=== PATIENT | female | born 1950 | race Caucasian/White ===

== ENCOUNTER → 2020-01-17 | Outpatient (CLI) | payer MEDICARE, SELFPAY ==
--- NOTE | 2020-01-17 11:25 | VUL_PTH ---
PATIENT: STEPHANIE KATZ LOC: [facility] U#:[id number] AGE/SX: 69/F ROOM: RE01/17/[address]: Dr. Tyron García MD : 1950 BED: DIS: 01/17/2020 SPEC #: [id number] RECD: 01/18/20 10:47 STATUS: CORY CHOU #: [id number] RHETT: 01/17/20 11:[address]: Tyron García DEPT: SURGICAL PATHOLOGY RECD BY: Chika Moreno ENTERED: 01/18/20 11:05 SP TYPE: VULVA BX OTHR DR: Dr. Tyron Hurst MD Tissues: Vulva, NOS Procedures: PAS Fungus (control) Special Stain Group I Surgery Specimen Level IV HEADER OPERATION: Vulvar biopsy PRE-OP DIAGNOSIS: N90.89 TISSUE SUBMITTED: Vulvar biopsy MICROSCOPIC DIAGNOSIS Vulvar biopsy: Fragments of squamous mucosa with marked chronic inflammation. Special stain for fungi is negative for organisms; matched control is appropriate. GABY:chetan 01/19/20 MICROSCOPIC DESCRIPTION Slides are reviewed. GROSS DESCRIPTION Received in fixative is one container labeled with the patient's name and designated vulvar biopsy. The specimen consists of two irregular fragments of lisa soft tissue that in aggregate measure 0.5 x 0.2 x 0.1 cm. The specimen is totally submitted in one cassette. / GABY:chetan 01/18/20 TC:3 CPT: 84444, 46600
== END | disposition home or self-care (01) ==
LOC: LABSPEC 01-18 11:17
PROVIDERS: PCP Family Medicine; Referring Provider Obstetrics & Gynecology; Visit Provider Obstetrics & Gynecology
DX: N90.89 Other specified noninflammatory disorders of vulva and perineum (principal)
CPT/HCPCS: 88305; 88312

== ENCOUNTER → 2024-09-08 | Outpatient (CLI) | payer MEDICARE, SELFPAY ==
--- NOTE | 2024-09-08 11:43 | US_ITS ---
STUDY: ULTRASOUND BREAST - LEFT REASON FOR EXAM: Female, 74 years old. History of right breast mass. TECHNIQUE: Axial and longitudinal images of the LEFT breast were performed with a high resolution ultrasound transducer. # OF IMAGES: 10 COMPARISON: None. FINDINGS: LEFT Breast: The upper lateral aspect of the right breast was examined with ultrasound. There is dense fibroglandular tissue. No sonographic abnormality is seen for biopsy. US/Breast Limited Unilateral IMPRESSION: No sonographic abnormality is seen. ASSESSMENT CATEGORY: BIRADS Category 1: Negative. A letter regarding these results will be sent to the patient by the facility within 30 days. Electronically Signed: Migel Jackson MD at 13:21 EDT ,
== END | disposition home or self-care (01) ==
PROVIDERS: PCP Family Medicine; Referring Provider Surgery; Visit Provider Surgery
DX: N63.10 Unspecified lump in the right breast, unspecified quadrant (principal); R92.8 Other abnormal and inconclusive findings on diagnostic imaging of breast
CPT/HCPCS: 76642

== ENCOUNTER → 2025-03-13 | Outpatient (CLI) | payer MEDICARE, SELFPAY ==
--- NOTE | 2025-03-13 10:51 | US_ITS ---
PROCEDURE: BREAST LIMITED UNILATERAL 03/13/2025 REASON FOR EXAM: 2 RIGHT BREAST MASSES. Masses were previously seen on a prior outside ultrasound examination. They were then not seen with clarity on a 09/08/2024 ultrasound. Document whether masses are present TECHNIQUE: Targeted left breast ultrasound at the 9 o'clock and 12 o'clock positions COMPARISON: Breast ultrasound exam dated 09/08/2024 and a mammogram report dated 08/04/2024 and a breast ultrasound report dated 08/04/2024. FINDINGS: Left breast ultrasound was targeted to the 9 o'clock and 12 o'clock regions. Ultrasonography was performed and demonstrates no ultrasound abnormality right breast at the 9 o'clock position. No suspicious solid or cystic masses seen at location. There is a solid, heterogeneous, hypoechoic and isoechoic, smoothly marginated mass in the right breast at the 12 o'clock, 6 cm from the nipple measuring 7 x 6 x 3 mm. Masses slightly larger whether to the prior breast ultrasound exam dated 08/04/2024. At that time this mass measured 5 x 4 x 4 mm. This mass is wider than it is tall and does not produce any posterior shadowing. The mass has primarily benign features and appears to represent a probable fibrocystic mass. US/Breast Limited Unilateral IMPRESSION: Impression: The solid mass in the right breast at the 12 o'clock position has s lightly increased in size. 1 more short-term follow-up ultrasound is recommended to document stability. The patient should return in July 2025 for routine yearly screening mammography. At that same time, a short-term follow-up ultrasound sh ould be performed to document whether the mass in the right breast at the 12 o'clock position stabilizes and size. Birads: BI-RADS 3: PROBABLY BENIGN. Reading Location: [id number]
== END | disposition home or self-care (01) ==
PROVIDERS: PCP Family Medicine; Referring Provider Surgery; Visit Provider Surgery
DX: R92.8 Other abnormal and inconclusive findings on diagnostic imaging of breast (principal)
CPT/HCPCS: 76642

== ENCOUNTER → 2025-04-07 | Outpatient (CLI) | payer MEDICARE, SELFPAY ==
--- NOTE | 2025-04-07 | BRBX_PTH ---
PATIENT: STEPHANIE KATZ LOC: [facility] U#:[id number] AGE/SX: 74/F ROOM: RE04/07/[address]: Dr. Felicia Parada MD : 1950 BED: DIS: 04/07/2025 SPEC #: [id number] RECD: 04/07/25 13:15 STATUS: CORY REColin #: [id number] RHETT: 04/07/25 00:[address]: Felicia Parada DEPT: SURGICAL PATHOLOGY RECD BY: Ricardo Kimbrough ENTERED: 04/07/25 13:26 SP TYPE: BREAST BX MADELAINE DR: Zarina Rodriguez PA-C Tissues: A - Right breast, NOS Procedures: Surgery Specimen Level IV HEADER OPERATION: Ultrasound guided breast biopsy - right PRE-OP DIAGNOSIS: Right breast TISSUE SUBMITTED: A- Right breast, 12o'clock, 6cm from nipple Ischemic Time: <1 minute Fixation Time: 6 hours MICROSCOPIC DIAGNOSIS A. Right breast, 12:00, 6 CMFN, core biopsy: * Benign breast tissue with focal microcalcification. MICROSCOPIC DESCRIPTION Slides are reviewed. GROSS DESCRIPTION A. Received in formalin in a container labeled with the patient's name, date of , and RT breast 12+6 are multiple lisa-yellow fragments of fibrofatty tissue measuring 2.0 x 0.7 x 0.2 cm in aggregate. Submitted in toto in A1. Total formalin fixation time: Between 6 and 72 hours. [facility] 04-07-2025 CPT:51429
--- NOTE | 2025-04-07 12:25 | US_ITS ---
PROCEDURE: US BREAST BIOPSY 1ST LESION 04/07/2025 REASON FOR EXAM: F, Age 74 y/o , RIGHT BREAST MASS COMPARISON: Prior exam(s) dating back to March 10, 2025.. TECHNIQUE: Under direct sonographic guidance, the surgeon performed core biopsies of the 7 mm x 7 mm x 4 mm hypoechoic nodule at the 12 o'clock position of the breast at 6 cm from the nipple. FINDINGS: Successful ultrasound-guided breast biopsy as described. US/US Breast Biopsy 1st Lesion IMPRESSION: Successful ultrasound-guided breast biopsy of the hypoechoic nodule at the 12 o 'clock position of the breast at 6 cm from the nipple measuring 7 mm x 7 mm x 4 mm. BI-RADS 0: INCOMPLETE - NEED ADDITIONAL IMAGING EVALUATION. Reading Location: [place] [address]
== END | disposition home or self-care (01) ==
LOC: BIRAD 12:24
PROVIDERS: PCP Family Medicine; Referring Provider Surgery; Visit Provider Surgery
DX: R92.8 Other abnormal and inconclusive findings on diagnostic imaging of breast (principal)
CPT/HCPCS: 19084; 19083; 88305

== ENCOUNTER 2025-10-17 13:14 | Day surgery (SDC) | payer MEDICARE, SELFPAY ==
[2025-10-17] VITALS (10 sets, daily range): BP systolic 125–160; BP diastolic 66–91; PULSE 65–89; RESP 16–18; TEMP 35.9–36.8; O2SAT 94–97; BMI 21.4
--- NOTE | 2025-10-17 13:42 | HP.PCM_ITS ---
HPI - General General Date of Admission: 10/17/25 Date of Service: 10/17/25 Chief Complaint: Choledocholithiasis HPI Narrative MAYRA KATZ, is a 75 F who presents [ Chief Complaint: Abdominal pain Referred from primary care provider due to abnormal MRI. Patient endorses a history of diverticulitis and reports about 3 episodes. In May 2025 she started having symptoms of diverticulitis and was started on an antibiotic however symptoms did not resolve and CT abdomen pelvis was ordered. Diverticulitis was confirmed and she was started on another round of antibiotics. CT also showed a dilated pancreatic duct and MRI was subsequently ordered. Findings below. Patient endorses intermittent right upper quadrant pain after eating certain foods. She has also had a unintentional weight loss over the past few months. Patient discovered she was prediabetic back in the beginning of 2024 and started to eat healthier. She started to lose too much weight and added back in some carbs but continued to lose weight. She weighed as low as 117. Patient also notes a long history of constipation. She feels like she does not fully evacuate. She does not take daily medications for constipation. Last colonoscopy was 3 years ago with polyps and diverticula MRI abdomen with and without contrast 08/04/2025: Filling defect in the inferior common bile duct. Suspected stones in the gallbladder neck though seen only in 1 sequence. Localized cystic dilation of left lobe intrahepatic duct. Pancreatic ductal dilation without appreciable obstructive lesion. [facility] Medical History Wears glasses Post-menopausal TIA (transient ischemic attack) Former smoker History of Holter monitoring History of stress test Osteopenia High cholesterol Cystic lump of breast Bone fracture GERD (gastroesophageal reflux disease) Prediabetes Osteoporosis RUQ pain Abnormal mammogram HTN (hypertension) Home Medications ?Medication ?Instructions ?Recorded ?Last Taken ?Type alendronate 70 mg tablet 70 mg PO QWEEK 08/17/25 Unkn own History rosuvastatin 5 mg tablet (Crestor) 5 mg PO .QOD Unknown History amlodipine 5 mg tablet 5 mg PO DAILY 10/13/25 Unkno wn History Allergy/AdvReac Type Severity Reaction Status Date / Time No Known Allergies Allergy Verified 10/13/25 09:09 Family History Sister Breast cancer Mother Hypertension Surgical History H/O tubal ligation Social History Smoking Status: Former smoker alcohol intake: current alcohol intake frequency: holidays/special occasions only substance use type: does not use what type of physical activity do you participate in: none ROS Constitutional Constitutional: Denies fatigue, fever(s), poor appetite, weight gain or weight loss Gastrointestinal Gastrointestinal: Denies belching, bloating, change in bowel habits, change in stool character, chewing difficulty, coffee ground emesis, constipation, cramping, diarrhea, dyspepsia, dysphagia, early satiety, excessive flatus, fecal incontinence, heartburn, hematemesis, hematochezia, hemorrhoids, loose stools, melena, nausea, odynophagia, rectal bleeding, tenesmus, vomiting or weight changes Physical Exam Const alert, oriented x3, no apparent distress and healthy appearing General Appearance: cooperative GI normal to inspection, nondistended, normoactive bowel sounds, soft to palpation, non-tender and non-distended Percussion: normal to percussion Rectal Exam: deferred Assessment & Plan Assessment/Plan (1) Cystic dilation of intrahepatic duct: (2) Pancreatic duct dilated: (3) RUQ pain: PLAN: Assessment and Plan Assessment and Plan (1) RUQ pain: Status: Acute Plan: Mayra is a 75-year-old female patient with past medical history of hypertension, prediabetes, diverticulitis, and osteopenia here today for evaluation. Patient endorses symptoms of diverticulitis starting in May 2025 which was treated with a course of antibiotics. Symptoms continued and CT abdomen pelvis was ordered which confirmed diverticulitis. She was again treated with another course of antibiotics. CT abdomen pelvis also revealing a dilated pancreatic duct. MRI was ordered and menstruated filing defect in the inferior common bile duct. Suspected stone in the gallbladder neck that was seen only on 1 sequence. Localized cystic dilatation of left lobe intrahepatic duct. Pancreatic ductal dilatation without appreciable obstructing lesion. She has intermittent right upper quadrant pain and mild unintentional weight loss over the past few months. Recommended ERCP for further evaluation and stone removal if necessary. Patient was scheduled for this today. Patient also with history of diverticulitis. Recent flare of diverticulitis was in June 2025 when she was treated with 2 courses of antibiotics. Last colonoscopy was 3 years ago with polyps. Patient also has a history of constipation with incomplete evacuation. I provided samples of Linzess 72 mcg daily. Due to recent diverticulitis and history of polyps she will be scheduled for colonoscopy for evaluation of her colon. Patient was agreeable to proceed. - ERCP for evaluation of biliary tree -Colonoscopy -Start Linzess -Follow-up after procedures Note: Portions of this note may have been selectively carried forward from previous documentation to ensure continuity and accuracy of the clinical record. All imported information has been reviewed and updated as necessary to reflect the current patient status, findings, and clinical decision-making for this encounter. Shake speech recognition photoengraving finisher software was used to create portions of this document. Sound alike and misspelled words, as well as other photoengraving finisher errors may be contained in the documentation. (2) History of diverticulitis: Status: Acute (3) Pancreatic duct dilated: Status: Acute (4) Cystic dilation of intrahepatic duct: Status: Acute]
[2025-10-17] MEDS: Lactated Ringers 1,000 ML 15 ML IV (13:57)
--- NOTE | 2025-10-17 14:14 | PRE.ANES_ITS ---
ASA Classification* ASA Classification ASA Classification: 2 Assessment & Plan Anesthesia* Anesthesia Assessment Anesthesia Assessment: Discussed sedation and/or anesthesia options, risks, benefits, and alternatives with patient/parents/legal guardian/POA. Questions invited. The patient/parents/legal guardian/POA seems to understand and agrees to proceed with anesthesia plan. Reviewed the physical assessment, medical history, allergy history and patient home medications list prior to surgery/procedure/anesthetic and documented any changes. Performed airway and anesthesia risk assessments. 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 When Was Last Pacemaker Check QUESTION #4 FULL TEXT: You/Your Family Experience fever (hyperthermia) with Anesthesia Last Oral Intake Last Oral intake: Last Oral Intake NPO since 06:00 10/17/25 13:51 Meds taken in AM with sips of Yes 10/17/25 13:51 water? Meds patient instructed to take am of surgery Any additional information?: Yes NPO since: 06:00 (Patient had black coffee at 6 AM.) Meds taken in AM with sips of water?: Yes Meds patient instructed to take am of surgery: Amlodipine PONV PONV - livestock farmworker: PONV - livestock farmworker Female Yes 10/13/25 09:19 HX of Motion Sickness No 10/13/25 09:19 HX of N/V After Surgery No 10/13/25 09:19 Non-Smoker Yes 10/13/25 09:19 Duration of Surgery greater No 10/13/25 09:19 than 60 minutes Number of Risk Factors 2 10/13/25 09:19 PONV Score Moderate Risk 10/13/25 09:19 Height & Weight Height & Weight: Anesthesia: Height & Weight Height 5 ft 3 in 10/17/25 13:51 Weight: 55 kg 10/17/25 13:51 Body Mass Index (BMI) 21.4 10/17/25 13:51 Respiratory Assessment Respiratory Assessment - livestock farmworker: Respiratory Tract Infection Hx - livestock farmworker Hx Respiratory Tract Infection No 10/13/25 09:19 STOP Sleep Apnea STOP Sleep Apnea - livestock farmworker: STOP Sleep Apnea - livestock farmworker Hx Hypertension Yes: CONTROLLED ON MED 10/13/25 09:19 Hx Sleep Apnea No 10/13/25 09:19 CPAP BIPAP Do you snore loudly (louder No 10/13/25 09:19 than talking or can be heard Do you often feel tired/ No 10/13/25 09:19 fatigued/ sleepy during daytime? Has anyone observed you stop No 10/13/25 09:19 breathing during sleep? STOP Results Negative 10/13/25 09:19 QUESTION #5 FULL TEXT : Do you snore loudly (louder than talking or can be heard through closed doors)? Tobacco Use History Tobacco Use History - livestock farmworker: Tobacco Use History - livestock farmworker Tobacco Use Smoking Status Former smoker 10/13/25 09:19 Hx Tobacco Use No 10/13/25 09:19 Years Smoking Packs Smoked per Day Smoking Cessation Date was No - quit smoking greater 10/13/25 09:19 within the last 15 years than 15 years ago Hx Smoking Cessation Date Hx Smoking Cessation Counseling Hematologic Medial History Hematologic Hx - livestock farmworker: Hematologic Medical Hx - customer resource specialist Hx of Blood Transfusion No 10/13/25 09:19 Hx of Transfusion in last 3 No 10/13/25 09:19 Months Date of Last Transfusion (if within last 3 months) Ever experience any problems No 10/13/25 09:19 with transfusion(s)? Specify any problems Hx of Preganancy in last 3 No 10/13/25 09:19 Months Nurse Filling Out Transfusion VCHRISTIN 10/13/25 09:19 & Questions: Date: 10/13/25 10/13/25 09:19 Time: 09:20 10/13/25 09:19 Patient unable to answer at this time (ie. confused, unrespo /Reproduction History /Reproductive History - livestock farmworker: /Reproductive Hx- livestock farmworker Hx Now No 10/13/25 09:19 Gestational Age (in weeks): EDC: Hx Hx Para Hx Section SAB No 10/13/25 09:19 Does the father of the baby or his family experience fever w Father of the baby Malignant Hypertension history comment Active Medications Active Medications: Current Medications Generic Name Dose Route Start Last Admin Trade Name Freq PRN Reason Stop Dose Admin Lactated Ringer's 1,000 mls @ 15 mls/hr 10/17/25 13:45 10/17/25 13:57 IV 15 mls/hr .Q48H ZIGGY Administration PFSH Medical History Wears glasses Post-menopausal TIA (transient ischemic attack) Former smoker History of Holter monitoring History of stress test Osteopenia High cholesterol Cystic lump of breast Bone fracture GERD (gastroesophageal reflux disease) Prediabetes Osteoporosis RUQ pain Abnormal mammogram HTN (hypertension) Home Medications ?Medication ?Instructions ?Recorded ?Last Taken ?Type alendronate 70 mg tablet 70 mg PO QWEEK 08/17/25 Unkn own History rosuvastatin 5 mg tablet (Crestor) 5 mg PO .QOD Unknown History amlodipine 5 mg tablet 5 mg PO DAILY 10/13/2510/17 06:00 History Allergy/AdvReac Type Severity Reaction Status Date / Time No Known Allergies Allergy Verified 10/17/25 13:50 Family History Sister Breast cancer Mother Hypertension Surgical History (Updated 10/17/25 @ 14:[address] Calin Causey MD) H/O colonoscopy Fracture, tibia and fibula H/O tubal ligation Social History Smoking Status: Former smoker alcohol intake: current alcohol intake frequency: holidays/special occasions only substance use type: does not use what type of physical activity do you participate in: none Review of Systems (Anesthesia) ROS Narrative System reviewed and no additional complaints, except as documented.
--- NOTE | 2025-10-17 14:30 | EGD_PTH ---
PATIENT: STEPHANIE KATZ LOC: [facility] U#:[id number] AGE/SX: 75/F ROOM: RE10/17/[address]: Dr. Pepe Still DO : 1950 BED: DIS: 10/17/2025 SPEC #: [id number] RECD: 10/17/25 18:02 STATUS: CORY JOSÉ ANTONIO #: [id number] RHETT: 10/17/25 14:[address]: Pepe Still DEPT: SURGICAL PATHOLOGY RECD BY: Ricardo Kimbrough ENTERED: 10/18/25 10:25 SP TYPE: EGD BIOPSY MADELAINE DR: Zarina Rodriguez PA-C Tissues: A - Ampulla of Vater Procedures: Surgery Specimen Level IV HEADER OPERATION: ERCP, biopsy PRE-OP DIAGNOSIS: Right upper quadrant pain, history of diverticulitis, pancreatic duct dilated, cystic dilation of intrahepatic duct TISSUE SUBMITTED: A- Major ampulla MICROSCOPIC DIAGNOSIS A. Small intestine, duodenal ampulla, biopsy: - Benign duodenal mucosa without active inflammation or dysplasia MICROSCOPIC DESCRIPTION Slides are reviewed. GROSS DESCRIPTION A. Received in fixative is one container labeled with the patient's name and designated Major ampulla. The specimen consists of four irregular fragments of lisa tissue that measure 0.1 to 0.3 cm. The specimen is totally submitted in one cassette. PR 10/18/2025 CPT:11141
--- NOTE | 2025-10-17 15:40 | RAD_ITS ---
PROCEDURE: ERCP BILIARY/PANCREAS 10/17/2025 REASON FOR EXAM: DILATED BILE DUCT TECHNIQUE: Procedure Code: RADERCP Modality: DX Procedure: ERCP BILIARY/PANCREAS. Intraoperative fluoroscopic services provided for ERCP. Fluoroscopy: 8.7 seconds. Radiation dose: 1.42 mGy. COMPARISON: None FINDINGS: Contrast was injected into the common bile duct. There is filling of the common bile duct as well as the intrahepatic biliary ducts. A biliary stent was placed. RAD/ERCP Biliary/Pancreas IMPRESSION: Biliary stent placement. Reading Location: [place] [address]
--- NOTE | 2025-10-17 16:46 | PCM.POST.ANE ---
Anesthesia: Postop Eval I Current Vital Signs Temperature: 97.6 F Pulse Rate: 70 Blood Pressure: 125/66 Respiratory Rate: 16 Pulse Ox: 95 Assessment Airway patent: Yes Spontaneous unlabored respirations: Yes nausea: No Vomiting: No Anesthesia Complication: No Fluid Hydration Crystalloid volume administer (ml): 700 Total IV fluid infused: 700 Progress Note Anesthesia document: Postop Eval 1 completed: Yes
--- NOTE | 2025-10-17 16:51 | OP.ERCP_ITS ---
Patient Name: Mayra Silva Procedure Date: 10/17/2025 2:58 PM Date of : 1950 Age: 75 Procedure: ERCP Indications: Bile duct stone(s) Providers: DO Shaina Clay MD: Zarina Rodriguez Medicines: Monitored Anesthesia Care Patient Profile: This is a 75 year old female. Refer to note in patient chart for documentation of history and physical. Patient has symptoms of chronic abdominal cramping and chronic right upper quadrant abdominal pain. This patient has no history of previous ERCP. This patient has no history of surgical alteration of the upper digestive tract anatomy. Complications: No immediate complications. Procedure: Pre-Anesthesia Assessment: - Prior to the procedure, a History and Physical was performed, and patient medications and allergies were reviewed. The patient is competent. The risks and benefits of the procedure and the sedation options and risks were discussed with the patient. All questions were answered and informed consent was obtained. Patient identification and proposed procedure were verified by the physician in the pre-procedure area. Mental Status Examination: alert and oriented. Airway Examination: normal oropharyngeal airway and neck mobility. Respiratory Examination: clear to auscultation. CV Examination: normal. Prophylactic Antibiotics: The patient does not require prophylactic antibiotics. Prior Anticoagulants: The patient has taken no anticoagulant or antiplatelet agents except for NSAID medication. ASA Grade Assessment: II - A patient with mild systemic disease. After reviewing the risks and benefits, the patient was deemed in satisfactory condition to undergo the procedure. The anesthesia plan was to use monitored anesthesia care (MAC). Immediately prior to administration of medications, the patient was re-assessed for adequacy to receive sedatives. The heart rate, respiratory rate, oxygen saturations, blood pressure, adequacy of pulmonary ventilation, and response to care were monitored throughout the procedure. The physical status of the patient was re-assessed after the procedure. After obtaining informed consent, the scope was passed under direct vision. Throughout the procedure, the patient's blood pressure, pulse, and oxygen saturations were monitored continuously. The Duodenoscope was introduced through the mouth, and advanced to the duodenum and used to inject contrast into the bile duct. The ERCP was accomplished without difficulty. The patient tolerated the procedure well. Scope In: 3:46:51 PM Scope Out: 4:32:55 PM Total Procedure Duration Time 0 hours 46 minutes 4 seconds Findings: The automotive technician film was normal. The esophagus was successfully intubated under direct vision. The scope was advanced to a normal major papilla in the descending duodenum without detailed examination of the pharynx, larynx and associated structures, and upper GI tract. The upper GI tract was grossly normal. A long 0.025 inch Jagwire was passed into the biliary tree. The short-nosed traction sphincterotome was passed over the guidewire and the bile duct was then deeply cannulated. Contrast was injected. I personally interpreted the bile duct images. There was brisk flow of contrast through the ducts. Image quality was adequate. Contrast extended to the entire biliary tree. Opacification of the entire opacified area, common bile duct, cystic duct, common hepatic duct and right intrahepatic branches was successful. The maximum diameter of the ducts was 8 mm. The lower third of the main bile duct and middle third of the main bile duct contained three stones, the largest of which was 6 mm in diameter. The main bile duct was locally dilated, with a stone causing an obstruction. The largest diameter was 8 mm. A 5 mm biliary sphincterotomy was made with a traction (standard) sphincterotome using ERBE electrocautery. There was no post-sphincterotomy bleeding. The biliary tree was swept with a 12 mm balloon starting at the bifurcation. Sludge was swept from the duct. All stones were removed. One 10 Fr by 5 cm temporary stent was placed 5 cm into the common bile duct. Bile flowed through the stent. The stent was in good position. A standard esophagogastroduodenoscopy scope was used for the examination of the upper gastrointestinal tract. The scope was passed under direct vision through the upper GI tract. Localized mild mucosal changes were found in the ampulla. Biopsy was performed in the ampulla through the esophagogastroduodenoscope with a cold forceps for histology. Impression: - Mucosal changes in the duodenum. - Biopsy was performed in the ampulla. - The entire main bile duct was dilated, with a stone causing an obstruction. - Choledocholithiasis was found. Complete removal was accomplished by biliary sphincterotomy and balloon extraction. - A biliary sphincterotomy was performed. - The biliary tree was swept. - One temporary stent was placed into the common bile duct. Recommendation: - Avoid aspirin and nonsteroidal anti-inflammatory medicines today. Procedure Code(s): --- Professional --- 67314, Endoscopic retrograde cholangiopancreatography (ERCP); with placement of endoscopic stent into biliary or pancreatic duct, including pre- and post-dilation and guide wire passage, when performed, including sphincterotomy, when performed, each stent 88024, Endoscopic retrograde cholangiopancreatography (ERCP); with removal of calculi/debris from biliary/pancreatic duct(s) 93543, Esophagogastroduodenoscopy, flexible, transoral; with biopsy, single or multiple 43697, 26, Endoscopic catheterization of the biliary ductal system, radiological supervision and interpretation CPT copyright 2021 [employer]. All rights reserved. The codes documented in this report are preliminary and upon sand caster apprentice review may be revised to meet current compliance requirements. Pepe Still DO 10/17/2025 4:51:05 PM This report has been signed electronically. Number of Addenda: 0 Note Initiated On: 10/17/2025 2:58 PM
--- NOTE | 2025-10-17 16:52 | OP.PROVAT_ITS ---
10/17/2025 [facility] Re : ERCP procedure for Mayra Rodriguez This procedure was performed on Friday, October 17, 2025. My impressions and recommendations are as follows: Impressions : - Mucosal changes in the duodenum. - Biopsy was performed in the ampulla. - The entire main bile duct was dilated, with a stone causing an obstruction. - Choledocholithiasis was found. Complete removal was accomplished by biliary sphincterotomy and balloon extraction. - A biliary sphincterotomy was performed. - The biliary tree was swept. - One temporary stent was placed into the common bile duct. Recommendations : - Avoid aspirin and nonsteroidal anti-inflammatory medicines today. My findings are described in the full procedure note, which is enclosed. If I can be of further assistance, please feel free to contact me at . Sincerely, Pepe Still, 10/17/2025 4:51:05 PM This report has been signed electronically.
--- NOTE | 2025-10-17 17:41 | SUR.PHASEII ---
phase 2; patient reports sore upper lip, likely from tubes during general procedure. explained to patient. no intervention needed.
--- NOTE | 2025-10-17 20:34 | POSTOPAN2_ITS ---
Anesthesia Postop Eval I Sum Postop Eval Completion status Anesthesia document: Postop Eval 1 completed: Yes Anesthesia Postop Eval I Summary Anesthesia Postop Eval I Summary: Anesthesia Postop Eval I: Assessment Summary Airway patent Yes 10/17/25 16:46 [email or web address] Spontaneous unlabored Yes 10/17/25 16:46 [email or web address] respirations Mental status nausea No 10/17/25 16:46 SANITATION [email or web address] Vomiting No 10/17/25 16:46 [email or web address] Anesthesia Postop Eval I: Fluid Summary Crystalloid volume administer 700 10/17/25 16:46 [email or web address] (ml) Colloids volume administered ( ml) Blood Product volume administered (ml) Total IV fluid infused 700 10/17/25 16:46 [email or web address] Anesthesia Postop Eval I: Summary Notes Anesthesia Complication No 10/17/25 16:46 [email or web address] Anesthesia Complication Comment: Post-operative progress note Anesthesia: Postop Eval II Evaluation Mental status: Awake and Calm Pain Level: 0 nausea: No Vomiting: No Complications Anesthesia Complication: No
--- NOTE | 2025-10-17 20:34 | PCM.POSTANE2 ---
Anesthesia Postop Eval I Sum Postop Eval Completion status Anesthesia document: Postop Eval 1 completed: Yes Anesthesia Postop Eval I Summary Anesthesia Postop Eval I Summary: Anesthesia Postop Eval I: Assessment Summary Airway patent Yes 10/17/25 16:46 [email or web address] Spontaneous unlabored Yes 10/17/25 16:46 [email or web address] respirations Mental status nausea No 10/17/25 16:46 [email or web address] Vomiting No 10/17/25 16:46 [email or web address] Anesthesia Postop Eval I: Fluid Summary Crystalloid volume administer 700 10/17/25 16:46 [email or web address] (ml) Colloids volume administered ( ml) Blood Product volume administered (ml) Total IV fluid infused 700 10/17/25 16:46 [email or web address] Anesthesia Postop Eval I: Summary Notes Anesthesia Complication No 10/17/25 16:46 [email or web address] Anesthesia Complication Comment: Post-operative progress note Anesthesia: Postop Eval II Evaluation Mental status: Awake and Calm Pain Level: 0 nausea: No Vomiting: No Complications Anesthesia Complication: No
== END 2025-10-17 18:16 | disposition home or self-care (01) ==
LOC: EN 13:15 → AC 13:16
PROVIDERS: PCP Family Medicine; Referring Provider Family Medicine; Visit Provider Internal Medicine Gastroenterology
PROC: (CPT 43260; principal; 2025-10-17 14:10)
DX: K80.51 Calculus of bile duct without cholangitis or cholecystitis with obstruction (principal); K86.89 Other specified diseases of pancreas; Z87.891 Personal history of nicotine dependence; E78.00 Pure hypercholesterolemia, unspecified; K82.8 Other specified diseases of gallbladder; I10 Essential (primary) hypertension; Z86.73 Personal history of transient ischemic attack (TIA), and cerebral infarction without residual deficits; Z79.899 Other long term (current) drug therapy; Z98.51 Tubal ligation status; R10.11 Right upper quadrant pain; K31.89 Other diseases of stomach and duodenum
CPT/HCPCS: 43274; 43239; 43264; 74330; 76000; 88305; 93005; C2625; J2405

== ENCOUNTER 2025-10-18 06:28 | Inpatient (IN) | payer MEDICARE, SELFPAY ==
[2025-10-18 06:29] VITALS: BP 147/71; PULSE 93; RESP 16; TEMP 36.4; O2SAT 97; BMI 21.9
--- OUTSIDE RECORDS SUMMARY | 2025-10-18 06:49 | XMS RPT_ITS | CCD ---
Author Organization [facility] Care Team Providers Care Core Dipper Name Role Phone Dandy Sauceda PA-C Primary Care Provider Tal BAILEY, Dr. Duarte Attending Provider [phone] Dr. Felicia Parada MD Referring Provider [phone] [place], DANDY Consulting Unavailable [place], DANDY Attending Unavailable [place], DANDY Admitting Unavailable [place], DANDY Primary Care Unavailable PROVIDER, UNKNOWN Consulting Unavailable [place], DANDY Attending Unavailable [place], DANDY Consulting Unavailable [place], DANDY Admitting Unavailable [place], DANDY Primary Care Unavailable ALDAIR ROSENTHAL MD Referring Unavailable PROVIDER, UNKNOWN Consulting Unavailable [place], DANDY Consulting Unavailable [place], DANDY Referring Unavailable DINESH CASTRO MD Admitting Unavailable DINESH CASTRO MD Primary Care Unavailable DINESH CASTRO MD Attending Unavailable PROVIDER, UNKNOWN Consulting Unavailable [place], DANDY Consulting Unavailable [place], DANDY Attending Unavailable [place], DANDY Admitting Unavailable [place], DANDY Primary Care Unavailable PROVIDER, UNKNOWN Consulting Unavailable [place], DANDY Consulting Unavailable [place], DANDY Attending Unavailable [place], DANDY Admitting Unavailable [place], DANDY Primary Care Unavailable PROVIDER, UNKNOWN Consulting Unavailable [place], DANDY Attending Unavailable [place], DANDY Consulting Unavailable [place], DANDY Admitting Unavailable [place], DANDY Primary Care Unavailable PROVIDER, UNKNOWN Consulting Unavailable Kendra Castaneda Attending Unavailable [place] Dandy KWOK Referring Unavailable Felicia Parada Attending Unavailable Felicia Parada Referring Unavailable [place] Dandy KWOK Primary Care Unavailable Felicia Parada Attending Unavailable Felicia Parada Referring Unavailable [place] Dandy KWOK Primary Care Unavailable Medications Current Medications Medication Drug Class(es) Dates Sig (Normalized) Sig (Original) amLODIPine 10 mg oral tablet (1 source) Dihydropyridine Calcium Channel Amanda Start: 08-25-2024 take 1 tablet by mouth once daily Amlodipine (Norvasc) 10 mg tablet Active 10 mg PO daily August 25, 2024 12:00am rosuvastatin calcium 5 mg oral tablet (1 source) HMG-CoA Reductase Inhibitor Start: 08-25-2024 take 1 tablet by mouth once daily Rosuvastatin (Crestor) 5 mg tablet Active 5 mg PO daily August 25, 2024 12:00am Problems Active Problems Problem Classification Problem Date Documented Da te Episodic/Chronic Abdominal pain (1 source) Right upper quadrant pain; Translations: [Right upper quadrant pain] Onset: 09-21-2025 Episodic Biliary tract disease (1 source) Other specified diseases of biliary tract; Translations: [Other specified diseases of biliary tract] Onset: 09-21-2025 Chronic Cardiac dysrhythmias (1 source) Cardiac arrhythmia, unspecified; Translations: [Cardiac arrhythmia, unspecified] Onset: 01-10-2025 Chronic Disorders of lipid metabolism (3 sources) Hyperlipidemia, unspecified; Translations: [Hyperlipidemia, unspecified] Onset: 01-03-2025 Chronic Nonmalignant breast conditions (1 source) Breast lump; Translations: [Unspecified lump in the right breast, unspecified quadrant] 08-25-2024 Episodic Other gastrointestinal disorders (1 source) Personal history of other diseases of the digestive system; Translations: [Personal history of other diseases of the digestive system] Onset: 09-21-2025 Episodic Pancreatic disorders (not diabetes) (1 source) Other specified diseases of pancreas; Translations: [Other specified diseases of pancreas] Onset: 09-21-2025 Episodic Past or Other Problems Problem Classification Problem Date Documented Date Episodic/Chronic Genitourinary symptoms and ill-defined conditions (1 source) Unspecified symptoms and signs involving the genitourinary system; Translations: [Unspecified symptoms and signs involving the genitourinary system] Onset: 01-31-2025 Episodic Other aftercare (1 source) Other rn long term care (current) drug therapy; Translations: [Other rn long term care (current) drug therapy] Onset: 01-03-2025 Episodic Other screening for suspected conditions (not mental disorders or infectious disease) (2 sources) Mammography abnormal; Translations: [Other abnormal and inconclusive findings on diagnostic imaging of breast] Onset: 04-13-2025 09-08-2024 Episodic Results Test Name Value Interpretation Reference Range Facility Gastroenterology Visit Repor ton 09-21-2025 Gastroenterology Visit Report [facility] [address] [place] [address] OFFICE VISIT Date of Service: 09/21/25 MR#: [id number] Acct: [id number] Name: STEPHANIE KATZ Rep #: [id number] : 1950 Provider: RISSA Goins Age/Sex: 75/F Location: [facility] [place] [facility] Status: Signed Intake Vital Signs 08/25/24 14:04 09/21/25 08:57 Height 5 ft 3 in Weight: 124 lb 4 oz Intake Visit Reasons: RUQ PAIN CONSTIPATION Chief Complaint: Abdominal pain Block Engraver Required: No Accompanied by: Is patient in pain?: No Allergies No Known Allergies Allergy (Unverified 09/21/25 08:54) Medications ???Medication ???Instructions ???Recorded ???Confirmed ???Type alendronate 70 mg tablet 70 mg PO QWEEK 08/17/25 08/17/25 H istory amlodipine 10 mg tablet (Norvasc) 5 mg PO QDAY 09/21/25 09/21/25 Hi story rosuvastatin 5 mg tablet (Crestor) 5 mg PO .QOD 09/21/25 09/21/25 H istory Have you fallen in the past year?: No PFSH Medical History Osteopenia High cholesterol Cystic lump of breast Bone fracture GERD (gastroesophageal reflux disease) Prediabetes Osteoporosis RUQ pain Abnormal mammogram HTN (hypertension) Surgical History H/O tubal ligation Family History Sister Breast cancer Mother Hypertension Social History Smoking Status: Former smoker alcohol intake: current alcohol intake frequency: holidays/special occasions only substance use type: does not use what type of physical activity do you participate in: none HPI HPI Chief Complaint: Abdominal pain Details: STEPHANIE KATZ, is a 75 F who presents to the office today for establishment. Referred from primary care provider due to abnormal MRI. Patient endorses a history of diverticulitis and reports about 3 episodes. In May 2025 she started having symptoms of diverticulitis and was started on an antibiotic however symptoms did not resolve and CT abdomen pelvis was ordered. Diverticulitis was confirmed and she was started on another round of antibiotics. CT also showed a dilated pancreatic duct and MRI was subsequently ordered. Findings below. Patient endorses intermittent right upper quadrant pain after eating certain foods. She has also had a unintentional weight loss over the past few months. Patient discovered she was prediabetic back in the beginning of 2024 and started to eat healthier. She started to lose too much weight and added back in some carbs but continued to lose weight. She weighed as low as 117. Patient also notes a long history of constipation. She feels like she does not fully evacuate. She does not take daily medications for constipation. Last colonoscopy was 3 years ago with polyps and diverticula MRI abdomen with and without contrast 08/04/2025: Filling defect in the inferior common bile duct. Suspected stones in the gallbladder neck though seen only in 1 sequence. Localized cystic dilation of left lobe intrahepatic duct. Pancreatic ductal dilation without appreciable obstructive lesion. ROS Const Constitutional: Positive for weight change (loss); No fatigue or fever(s) ENT ENT: No difficulty swallowing Gastro GI: Positive for abdominal pain, bloating, change in bowel habits and constipation; No belching, change in stool character, coffee ground emesis, cramping, diarrhea, heartburn, difficulty swallowing, feeling full early, excessive flatus, incontinent of stools, Vomiting blood/hematemesis, Blood in stool, loose stools, Black,tarry stools, nausea/dyspepsia, pain with swallowing, vomiting or other Musc Musculoskeletal: Positive for back pain, muscle cramps, stiffness, Arthritis and restless legs; No joint pain Skin Skin: Positive for dry skin, itchy eyes and rash; No yellowing of the eye Neuro Neurology: Positive for restless legs Psych Psychiatric: No anxiety and No depression Endo Endocrine: Positive for weight change (loss); No fatigue Aller/Imm Allergy/Immunologic: Positive for itchy eyes Darrell/Lymp Hematologic/Lymphati c: Positive for easy bruising; No easy bleeding Exam Const General: cooperative, healthy appearing and comfortable Nutritional Appearance: average body habitus Orientation: alert HENOK Head: normal to inspection Eyes General: appearance normal, both eyes and all related structures Neck Neck: normal visual inspection Chest Chest palpation inspection: normal inspection of the chest Cardio Rate: regular rate Rhythm: regular rhythm GI Inspection: normal to inspection Auscultation: normal bowel sounds Palpation: soft and nontender Assessment and Plan Assessment and Plan (more content not included)... Normal [facility] CREATININEon 08-04-2025 AGE 75 years Normal [facility] Comment on above: Performed By: #### 2 [id number] #### [facility],[address] [place] [address] Creatinine [Mass/Vol] 0.49 mg/dL Low 0.55 - 1.02 [facility] Comment on above: Performed By: #### 2 92852 #### [facility],[address] [place] [address] GFR/1.73 sq M.predicted among non-blacks MDRD (S/P/Bld) [Vol rate/Area] mL/min/{1.73_m2} Normal 60 - 999 [facility] Comment on above: Performed By: #### 2 79898 #### [facility],[address] [place], [place] [id number] MR ABDOMEN W //T// W/O CONTR Jason 08-04-2025 MR ABDOMEN W //T// W/O CONTRAST [address] ? [place] [address] ? Patient: STEPHANIE KATZ Phone#: : 1950 Age: 75 Gender: F Pt. Type: Out Account: [id number] Location: [facility] Ordering: DANDY HILLS Exam Date: 08/04/2025/10:08 Family Phys: Charge Code: [id number] Physician: Rogers Order #: [id number] Dose#: PROCEDURE: MRI ABDOMEN WITH AND WITHOUT CONTRST COMPARISON: [facility], CT, ABDOMEN/PELVIS W CON, 12/04/2022, 13:15. [facility], CT, ABDOMEN/PELVIS W CON, 07/05/2025, 11:43. INDICATIONS: Dilated pancreatic duct TECHNIQUE: A comprehensive MRI examination of the abdomen was performed utilizing a variety of imaging planes and imaging parameters to optimize visualization of suspected pathology. Images were obtained both before and after intravenous gadolinium injection. FINDINGS: LIVER: Focal cystic intrahepatic ductal dilatation in the left lobe measuring 1.2 x 1.7 cm, series 3, image 15. The remainder of the ducts are not dilated. There are at least 12 intrahepatic T2 hyperintense lesions, larger lesion measures 0.8 x 0.8 cm, series 3, image 14. There is no corresponding post- contrast enhancement. These are consistent with cysts. No dropout on out of phase imaging. BILIARY: Gallbladder is present. There are two filling defects in the gallbladder neck measuring 0.5 cm, series 3, image 19 and 0.4 cm, image 21. Common bile duct measures 0.7 cm. There is filling defect in the inferior common bile duct with meniscus sign seen on series 3 image 23. The filling defect measures 0.5 cm in diameter. PANCREAS: Pancreatic duct dilated measuring 0.6 cm at the pancreatic head and 0.4 cm in the body. At the ampulla there is normal tapering. There is a small cyst in the pancreatic tail measuring 0.3 cm, series 3, image 30; no appreciable connection to the pancreatic duct. There is signal loss at the pancreatic head, series 12, image 20 this likely corresponds to a duodenal diverticulum seen on comparison CT. SPLEEN: Normal. No enlargement or focal lesion. KIDNEYS: Kidneys enhance symmetrically. There are small T2 hyperintense lesions with no corresponding post-contrast enhancement, consistent with cysts. ADRENALS: Normal. No mass or enlargement. AORTA/VASCULAR: Normal. No aneurysm or dissection. OTHER: Negative. CONCLUSION: Continued Report - Page 2 of 2 Patient: STEPHANIE KATZ Phone#: : 1950 Age: 75 Gender: F Pt. Type: Out Account: [id number] [facility] Exam Date: 08/04/2025/10:08 Family Phys: Charge Code: [id number] Physician: Rogers Order #: [id number] Dose#: 1. Filling defect in the inferior common bile duct. 2. Suspected stones in the gallbladder neck though seen only on one sequence 3. Localized cystic dilatation of left lobe intrahepatic duct. 4. Pancreatic ductal dilatation without appreciable obstructing lesion. 5. Recommend gastroenterology follow-up regarding above findings. Dictated by: Aldair Rosenthal MD on 08/09/2025 at 16:03 Approved by: Aldair Rosenthal MD on 08/09/2025 at 16:39 Normal [facility] URINE CULTURE [CCL]on 2024 Bacteria identified Cx Nom (U) URCUL See Results Below See Below CULTURE, URINE No growth (<1,000 CFU/ml) SOURCE: Urine (Nonspecific) [facility] [address] [place] [address] Polo Christian III, M.D. [id number] SEND TO NO Normal [facility] Comment on above: Performed By: #### 2 73664 ####[facility],[address] [place] [address] CBC + DIFFon 07-05-2025 Baso # 0.01 x10EE3/UL Normal 0.00 - 0.10 [facility] Comment on above: Performed By: #### 2 51794 #### [place] [address] Basophils/100 WBC (Bld) 0.3 % Normal 0.0 - 2.0 [facility] Comment on above: Performed By: #### 2 43610 #### [place] [address] CBC + DIFF Normal [facility] Comment on above: Result Comment: CBC- COMPLETE BLOOD COUNT Performed By: #### 2 72804 #### [facility],[address] [place] [address] EO # 0.05 x10EE3/UL Normal 0.00 - 0.50 [facility] Comment on above: Performed By: #### 2 91421 #### [place] [address],[place] [address] Eosinophils/100 WBC (Bld) 1.1 % Normal 0.0 - 7.0 [facility] Comment on above: Performed By: #### 2 86815 #### [facility],[address] [place] [address] Erythrocyte distribution width (RBC) [Ratio] 14.0 % Normal 12.0 - 15.6 [facility] Comment on above: Performed By: #### 2 16021 #### [facility],[address] [place] [address] Hematocrit (Bld) [Volume fraction] 39.6 % Normal 34.0 - 46.0 [facility] Comment on above: Performed By: #### 2 14340 #### [facility],[address] [place] [address] Hemoglobin (Bld) [Mass/Vol] 13.8 g/dL Normal 12.0 - 16.0 [facility] Comment on above: Performed By: #### 2 16107 #### [facility],[address] [place] [address] Lymph # 1.04 x10EE3/UL Normal 0.80 - 2.80 [facility] Comment on above: Performed By: #### 2 87573 #### [facility],[address] [place], [place] [id number] Lymphocytes/100 WBC (Bld) 22.9 % Normal 20.0 - 45.0 [facility] Comment on above: Performed By: #### 2 62373 #### [facility],[address] [place], [place] [id number] MANUAL DIFF N/A Normal [facility] Comment on above: Performed By: #### 2 08888 #### [facility],[address] [place], [place] [id number] MCH (RBC) [Entitic mass] 32 pg Normal 27 - 33 [facility] Comment on above: Performed By: #### 2 38203 #### [facility],[address] [place] [address] MCHC 35 X10 3 Normal 32 - 36 [facility] Comment on above: Performed By: #### 2 82889 #### [facility],[address] [place], [place] [id number] MCV (RBC) [Entitic vol] 92 fL Normal 80 - 99 [facility] Comment on above: Performed By: #### 2 68876 #### [facility],[address] [place] [address] [place] # 0.30 x10EE3/UL Normal 0.20 - 1.00 [facility] Comment on above: Performed By: #### 2 82561 #### [facility],[address] [place] [address] MONOS % 6.5 % Normal 0.0 - 10.0 [facility] Comment on above: Performed By: #### 2 35151 #### [facility],[address] [place] [address] Morphology Андрей (Bld) [Interp] N/A Normal [facility] Comment on above: Performed By: #### 2 98472 #### [facility],[address] [place] [address] Neut # 3.16 x10EE3/UL Normal 1.50 - 7.10 [facility] Comment on above: Performed By: #### 2 58246 #### [facility],[address] [place] [address] Neutrophils/100 WBC (Bld) 69.2 % Normal 46.0 - 76.0 [facility] Comment on above: Performed By: #### 2 16529 #### [facility],[address] [place] [address] PLATELET 237 x10EE3/UL Normal 150 - 450 [facility] Comment on above: Performed By: #### 2 91677 #### [facility],[address] [place] [address] Platelet mean volume (Bld) [Entitic vol] 9.5 fL Normal 6.6 - 10.5 [facility] Comment on above: Result Comment: AUTO MATED DIFFERENTIAL Performed By: #### 2 29577 #### [facility],[address] [place] [address]98 RBC 4.29 x 10EE6/UL Normal 4.10 - 5.30 [facility] Comment on above: Performed By: #### 2 06805 #### [facility],[address] [place] [address]99 WBC 4.6 x 10EE3/UL Normal 4.5 - 10.8 [facility] Comment on above: Performed By: #### 2 96532 #### [facility],[address] [place] [address] CMP with eGFRon 07-05-2025 AGE 75 years Normal [facility] Comment on above: Performed By: #### 2 49951 ####[facility],[address] [place] [address]77[address] Albumin [Mass/Vol] 3.8 g/dL Normal 3.4 - 5.0 [facility] Comment on above: Performed By: #### 2 20076 ####[facility],[address] [place] [address] Albumin/Globulin [Mass ratio] 1.3 {ratio} Normal 0.9 - 1.6 [facility] Comment on above: Performed By: #### 2 85041 ####[facility],[address] [place] [address] ALK PHOS 45 U/L Low 46 - 116 [facility] Comment on above: Performed By: #### 2 81841 ####[facility],[address] [place] [address] 23799 ALT [Catalytic activity/Vol] 18 U/L Normal 16 - 63 [facility] Comment on above: Performed By: #### 2 52538 ####[facility],[address] [place] [address]756 Anion gap [Moles/Vol] 10 mmol/L Normal 10 - 20 [facility] Comment on above: Performed By: #### 2 00394 ####[facility],[address] [place] [address]644 AST [Catalytic activity/Vol] 14 U/L Normal 13 - 39 [facility] Comment on above: Performed By: #### 2 87563 ####[facility],[address] [place] [address] 26583 B/C RATIO 24 ratio Normal 0 - 30 [facility] Comment on above: Performed By: #### 2 55752 ####[facility],[address] [place] [address]05[address] Bilirubin [Mass/Vol] 0.8 mg/dL Normal 0.2 - 1.0 [facility] Comment on above: Performed By: #### 2 94847 ####[facility],[address] [place] [address] 28367 Calcium [Mass/Vol] 9.0 mg/dL Normal 8.5 - 10.1 [facility] Comment on above: Performed By: #### 2 22883 ####[facility],[address] [place] [address] 80832 Chloride [Moles/Vol] 105 mmol/L Normal 98 - 107 [facility] Comment on above: Performed By: #### 2 83103 ####[facility],[address] [place] [address]9470 CMP with eGFR Normal [facility] Comment on above: Result Comment: COMP REHENSIVE METABOLIC PANEL Performed By: #### 2 79567 ####[facility],[address] [place] [address] 61817 CO2 [Moles/Vol] 29.1 mmol/L Normal 21.0 - 32.0 [facility] Comment on above: Performed By: #### 2 95802 ####[facility],[address] [place] [address]137 Creatinine [Mass/Vol] 0.50 mg/dL Low 0.55 - 1.02 [facility] Comment on above: Performed By: #### 2 16946 ####[facility],[address] [place] [address] 76362 GFR/1.73 sq M.predicted among non-blacks MDRD (S/P/Bld) [Vol rate/Area] mL/min/{1.73_m2} Normal 60 - 999 [facility] Comment on above: Performed By: #### 2 14699 ####[facility],[address] [place] [address] Result Comment: ACCO RDING TO THE NATIONAL KIDNEY DISEASE EDUCATION PROGRAM(NKDE), A NORMAL eGFR IS A VALUE GREATER THAN OR EQUAL TO 60 ML/MIN/1.73 SQ METERS. CHRONIC KIDNEY DISEASE: <60mL/MIN/1.73 SQ METERS KIDNEY FAILURE: <15mL/MIN/1.73 SQ METERS THIS TEST SHOULD ONLY BE USED FOR PATIENTS 18 YEARS OF AGE AND OLDER. Globulin (S) [Mass/Vol] 3.0 g/dL Normal 1.5 - 3.8 [facility] Comment on above: Performed By: #### 2 65969 ####[facility],[address] [place] [address]3951 Glucose [Mass/Vol] 103 mg/dL Normal 74 - 106 [facility] Comment on above: Performed By: #### 2 29612 ####[facility],[address] [place] [address]4232 Potassium [Moles/Vol] 3.9 mmol/L Normal 3.5 - 5.1 [facility] Comment on above: Performed By: #### 2 30552 ####[facility],[address] [place] [address]1753 Protein [Mass/Vol] 6.8 g/dL Normal 6.4 - 8.2 [facility] Comment on above: Performed By: #### 2 06924 ####[facility],[address] [place] [address]135 Sodium [Moles/Vol] 140 mmol/L Normal 136 - 145 [facility] Comment on above: Performed By: #### 2 07249 ####[facility],[address] [place] [address] Urea nitrogen [Mass/Vol] 12 mg/dL Normal 7 - 18 [facility] Comment on above: Performed By: #### 2 58806 ####[facility],[address] [place] [address] ABDOMEN/PELVIS Won 2024 CT ABDOMEN/PELVIS W [place] [address] Patient: STEPHANIE KATZ Phone#: : 1950 Age: 75 Gender: F Pt. Type: ER Account: [id number] Location: [facility] Ordering: DR. DINESH CASTRO Exam Date: 07/05/2025/11:43 Family Phys: DANDY SAUCEDA Charge Code: [id number] Physician: Rogers Order #: [id number] Dose#: [id number] PROCEDURE: CT ABDOMEN/PELVIS WITH CONTRAST COMPARISON: [facility], CT, ABDOMEN/PELVIS W CON, 12/04/2022, 13:15. INDICATIONS: LLQ pain. TECHNIQUE: After obtaining the patient's consent, CT images were created with non-ionic intravenous contrast material. All CT scans at this facility use dose modulation, iterative reconstruction, and/or weight based dosing when appropriate to reduce radiation dose to as low as reasonably achievable. IV CONTRAST: Omnipaque 350,80ml TOTAL DOSE: 9.8 CTDIvol(mGy) FINDINGS: LIVER: There are a few small hypo dense lesions in the liver similar in distribution and number compared to prior the largest measures 1.3 x 1.6 cm, slightly increased from prior previously measuring 1.0 x 1.5 cm. BILIARY: Gallbladder is present. Common bile duct measures 0.7 cm. PANCREAS: Pancreatic ductal dilatation measuring 0.6 cm at the pancreatic head, series 4, image 19. At the body pancreatic duct measures 0.5 cm, series 4, image 15. SPLEEN: Normal. No enlargement or focal lesion. KIDNEYS: Kidneys enhance and excrete contrast symmetrically. No hydronephrosis. ADRENALS: Normal. No mass or enlargement. AORTA/VASCULAR: No aortic aneurysm. There are atherosclerotic calcifications of the aorta RETROPERITONEUM: Normal. No mass or adenopathy. BOWEL/MESENTERY: No bowel obstruction or dilatation. No significant stool burden. There is diverticulosis of the sigmoid colon. There is mild stranding surrounding the descending colon and adjacent diverticula, series 2, image 57. No free fluid. No loculated fluid collection. Moderate stool burden. Appendix is not visualized. ABDOMINAL WALL: Normal. No mass or hernia. URINARY BLADDER: Urinary bladder is decompressed. PELVIC NODES: Normal. No adenopathy. Continued Report - Page 2 of 2 Patient: STEPHANIE KATZ Phone#: : 1950 Age: 75 Gender: F Pt. Type: ER Account: [id number] Location: 052 Ordering: DR. DINESH CASTRO Exam Date: 07/05/2025/11:43 Family Phys: [facility] Charge Code: 290195 Physician: Rogers Order #: [id number] Dose#: [id number] PELVIC ORGANS: There is a large heterogeneously enhancing mass distorting the uterus, presumably a fibroid. It measures 7.1 x 6.4 x 7.0 cm, previously 7.9 x 7.3 x 7.4 cm. There are calcifications within the mass. There are calcifications in the adjacent soft tissues. BONES: Diffuse bony demineralization. T11 stable chronic superior endplate wedge compression deformity. Disc height loss and vacuum disc phenomena at L5- S1. LUNG BASES: There are dependent changes. OTHER: Negative. CONCLUSION: 1. Pancreatic ductal dilatation. Recommend pancreatic MRI for further characterization. 2. Mild diverticulitis the descending colon. 3. Large uterine mass, likely fibroid, not significantly changed from prior. Dictated by: Aldair Rosenthal MD on 07/05/2025 at 12:13 Approved by: Aldair Rosenthal MD on 07/05/2025 at 12:29 Normal [facility] ED MED ADMINISTRATION DETAIL on 07-05-2025 ED MED ADMINISTRATION DETAIL Manager Social - STEPHANIE KATZ : 1950, , Medication Administration Record [address] [address] [id number] 07/05/2025 Patient: STEPHANIE KATZ Sex: Female : 1950 Age: 75y MEASUREMENTS: Wt: 54.4 kg, Ht/Allan: 63.0 in, BMI: 21.26 ALLERGIES: No known drug allergies Medication Ordered Medication Administration Date/Time Flagyl PO 500 mg 13:08 07/05 Flagyl PO 500 mg given. Allergies verified and Given (NOW x1) confirmed 5 rights. Information reviewed with patient including 13:08 07/05/2025 reason for taking this medication, signs of allergic reaction and Manfred Mensah R.N. precautions. Verbalizes understanding. - 13:08 Manfred Mensah R.N. Scanned Cipro PO 500 mg 13:08 07/05 Cipro PO 500 mg given. Allergies verified and Given (NOW x1) confirmed 5 rights. Information reviewed with patient including 13:08 07/05/2025 reason for taking this medication, signs of allergic reaction and Manfred Mensah R.N. precautions. Verbalizes understanding. - 13:08 Manfred Mensah R.N. Scanned 1 of 1 Normal [facility] ED NURSES CLINICAL NOTEon ED NURSES CLINICAL NOTE Nurse Narrative - STEPHANIE KATZ, : 1950, , Nurse Clinical Narrative [address] [address] [id number] 07/05/2025 09:52:00 Patient: STEPHANIE KATZ Sex: Female : 1950 Age: 75y Disposition: Discharge to Home Disposition Decision Time: 12:53 07/05/2025 Departure Time: 13:52 07/05/2025 TRIAGE Arrived by private vehicle. Historian: (patient). Primary physician (gina sauceda). Triage time: 09:56 07/05/2025. Acuity: LEVEL 3. Chief Complaint: ABDOMINAL PAIN. ( PCP started pt on Augmentin last . liquid diet x3 days, then soft.). -- 10:00 07/05/25 EDT Angie Booker R.N. 09:59 07/05/25. BP: 171/71 MAP: 104. HR: 75. RR: 18. O2 saturation: 96% Temperature: 97.8 F. Pain level now 410. -- 10:00 07/05/25 EDT Angie Booker R.N. 10:02 07/05/25. SEPSIS SCREEN: NEGATIVE. SIRS criteria negative. No possible sources of infection. -- 10:02 07/05/25 EDT Manfred Mensah R.N. Measurements: 09:57 07/05/25 Wt: 54.4 kg, Ht/Allan: 63.0 in, BMI: 21.26 -- 09:57 07/05/25 EDT Angie Booker R.N. Medications: amLODIPine 10 mg tablet -- 10:04 07/05/25 EDT Angie Booker R.N. rosuvastatin 20 mg tablet -- 10:04 07/05/25 EDT Angie Booker R.N. 1 of 4 Nurse Narrative - STEPHANIE KATZ, : 1950, , Allergies: no known drug allergies -- 10:02 07/05/25 EDT Angie Booker R.N. Problems: Diverticulitis -- 10:00 07/05/25 EDT Angie Booker R.N. Hypertension -- 10:04 07/05/25 EDT Angie Booker R.N. Hypercholesterolemia -- 10:04 07/05/25 EDT Angie Booker R.N. Surgeries: Tubal Ligation -- 10:03 07/05/25 EDT Manfred Mensah R.N. Right Leg Surgery -- 10:03 07/05/25 EDT Manfred Mensah R.N. History 09:56 07/05/25. SOCIAL HX: The patient has not traveled outside the [place] Infectious disease exposure: No infectious disease exposure. ABUSE ASSESSMENT: Abuse denied. No suspicion of abuse. SELF HARM ASSESSMENT: Self harm assessment was performed. The patient answered no to the question(s) Have you recently felt down, depressed, or hopeless?, Do you have thoughts of harming or killing yourself?, Do you have a plan for harming or killing yourself?, Have you recently had thoughts about harming or killing others?, Do you have any dangerous items in your possession?, Have you noticed less interest or pleasure in doing things?, Are you here because you tried to hurt yourself? and Have you ever tried to hurt yourself before today?. FALL RISK ASSESSMENT: Fall risk assessment completed. No risk factors identified. -- 10:00 07/05/25 EDT Angie Booker R.N. 10:03 07/05/25. SOCIAL HX: Never smoker. -- 10:03 07/05/25 EDT Manfred Mensah R.N. Interventions 2 of 4 Nurse Narrative - STERLING STEPHANIE, : 1950, , 09:56 07/05/25. Advanced care plan. It is unknown if patient has advanced directive. -- 10:00 07/05/25 EDT Angie Booker R.N. PHYSICAL ASSESSMENT 10:46 07/05/25. Ambulatory to room. Patient gowned. GENERAL / NEURO / PSYCH: Alert. Oriented X 4. Appears in no acute distress. HEENT: Mucous membranes are pink. RESPIRATORY: Respirations not labored. Breath sounds within normal limits. CVS: Normal sinus rhythm noted. Capillary refill less than 2 seconds. GI / : Abdomen soft and nontender. Bowel sounds within normal limits. Stool color normal. ( Patient reports LLQ abdominal pain that is nontender to palpation.). SKIN: Skin is warm and dry. -- 10:56 07/05/25 EDT Manfred Mensah R.N. NURSING PROGRESS NOTES 11:40 07/05/25. Patient transported to CT by stretcher with monitor and survey data technician. -- 11:56 07/05/25 EDT Fallon Hughes R.N. 11:56 07/05/25. Rounding: Pain: assessed pain level. Position: states comfortable. Proximity of possessions / care items: call light within easy reach. Set expectations: advised patient of rounding protocol timing and asked if they needed anything else at this time. (returned to room from PA ). Patient identifiers checked. Call light placed in reach. Side rails up x 2. Bed placed in lowest position. Brakes of bed on. -- 11:56 07/05/25 EDT Fallon Hughes R.N. 12:30 07/05/25. Patient identifiers checked. Call light placed in reach. Side rails up x 2. Bed placed in lowest position. Brakes of bed on. -- 22:44 07/05/25 EDT Fallon Hughes R.N. 13:08 07/05/25. Cipro PO 500 mg given. Allergies verified and confirmed 5 rights. Information reviewed with patient including reason for taking this medication, signs of allergic reaction and precautions. Verbalizes understanding. -- 13:08 07/05/25 EDT Manfred Mensah R.N. 13:08 07/05/25. Flagyl PO 500 mg given. Allergies verified and confirmed 5 rights. Information reviewed with patient including reason for taking this medication, signs of allergic reaction and precautions. Verbalizes understandin (more content not included)... [facility] ED ORDER SHEET (CPOE ONLY)on 07-05-2025 ED ORDER SHEET (CPOE ONLY) Order Sheet - STEPHANIE KATZ, : 1950, , Order Sheet [address] [address] [id number] 07/05/2025 Patient: STEPHANIE KATZ Sex: Female : 1950 Age: 75y MEASUREMENTS: Wt: 54.4 kg, Ht/Allan: 63.0 in, BMI: 21.26 ALLERGIES: No known drug allergies MEDICATION/IV/DRIP/F LUID ORDERS Order Description Priority Entered Acknowledged Completed Flagyl PO500 mg (NOW x1) 12:57 07/05/2025 13:06 13:08 Dinesh Castro M.D. 07/05/2025 07/05/2025 Manfred Velasquez, Richie RYobani. Cipro PO500 mg (NOW x1) 12:57 07/05/2025 13:06 13:08 Dinesh Castro M.D. 07/05/2025 07/05/2025 Manfred Velasquez R.N. R.Severiano LAB ORDERS Order Description Priority Entered Acknowledged Collected Completed CBC w Diff Stat Stat 10:23 07/05/2025 10:29 07/05/2025 11:31 07/05/2025 Manfred Singh Crystal Brenner, M.D. R.Adrian. R.N. CMP Stat Stat 10:23 07/05/2025 10:29 07/05/2025 11:31 07/05/2025 Manfred Singh Crystal Brenner, 1 of 2 Order Sheet - KATZSTEPHANIE, : 1950, , Dianne Escalona.N. R.N. Urinalysis Stat Stat 10:23 07/05/2025 10:29 07/05/2025 11:31 07/05/2025 Manfred Singh Crystal Brenner, M.D. R.N. R.N. Urine Culture [CCL] Stat Stat 10:23 07/05/2025 10:29 07/05/2025 11:31 07/05/2025 Manfred Singh Crystal Brenner, M.D. R.N. R.N. DIAGNOSTIC STUDY ORDERS Order Description Priority Entered Acknowledged Completed CT ABD/PEL w Cont Stat Stat 10:23 07/05/2025 10:29 11:31 Dinesh aCstro M.D. 07/05/2025 07/05/2025 Fallon Velasquez R.N. RIsabelleN. Order Comments: 10:23 07/05/2025: (Hx diverticulitis, has not responded to atb) Dinesh Castro M.D. Reason for Study: llq pain,flank pain STAFF ORDERS Order Description Priority Entered Acknowledged Collected Completed [Electronically signed by Dinesh Castro M.D. (07/05/2025 13:08 EDT)] 2 of 2 Normal [facility] ED PHYSICIAN CLINICAL REPORT on 07-05-2025 ED PHYSICIAN CLINICAL REPORT Narrative - STEPHANIE KATZ : 1950, , Physician Clinical Narrative [place] [address] [place] [address] [id number] 07/05/2025 09:52:00 Patient: STEPHANIE KATZ Sex: Female : 1950 Age: 75y Disposition: Discharge to Home Disposition Decision Time: 12:53 07/05/2025 Measurements Wt: 54.4 kg, Ht/Allan: 63.0 in, BMI: 21.26 Initial Vital Sign Measured Time BP MAP HR RR O2Sat ETCO2 Temp Pain GCS RTS 09:59 07/05/2025 171/71 104 75 18 96% 97.8 F 4 Time Seen: 10:23 07/05/2025. HISTORY OF PRESENT ILLNESS Chief Complaint: ABDOMINAL PAIN. This started last week. (patient comes in with left lower quadrant pain. Has been going on greater than 1 week. He has already completed a course of Augmentin states this has not help. She has a longstanding history of diverticulitis. States that she has never had bleeding with the diverticulitis but usually responds to antibiotics now she does not. No history kidney stones. She does feel that it is in the left lower quadrant lower back but not specifically flank pain. She has never had any significant diarrhea or blood in her stool. She has had decrease in bowel movements but it has also been eating less. Denies any chest pain, epigastric pain, nausea, vomiting. This is all limited of the left lower quadrant. Has had the decreased stools and they are reportedly messy. No actual hard stool or constipation concerns for the patient. Since she did not respond to the Augmentin she is sent in by her PCP for further evaluation). Similar symptoms previously. Patient has had similar symptoms several times. 1 of 11 Narrative - STEPHANIE KATZ, : 1950, , Recent medical care: The patient was seen recently in the office. REVIEW OF SYSTEMS All other systems reviewed and are negative. PAST HISTORY See nurses notes. Diverticulitis Hypercholesterolemia Hypertension Surgeries: Right Leg Surgery Tubal Ligation Medications: amLODIPine 10 mg tablet rosuvastatin 20 mg tablet Allergies: no known drug allergies ADDITIONAL NOTES The nursing notes have been reviewed. PHYSICAL EXAM Vital Signs: Have been reviewed. Appearance: Alert. Oriented X3. No acute distress. Neck: Normal inspection. Neck supple. CVS: Normal heart rate and rhythm. Heart sounds normal. Pulses normal. Respiratory: No respiratory distress. Painless inspiration. Breath sounds normal. Chest nontender. Abdomen: Soft. Tenderness in the left lower quadrant. No tenderness in the right upper quadrant, epigastric area, left upper quadrant, right side of the abdomen or periumbilical area. No tenderness in the left abdomen, 2 of 11 Narrative - STEPHANIE KATZ, : 1950, , right lower quadrant or suprapubic area, guarding or rebound tenderness. No Asencio's sign present. No mass. Back: Normal inspection. No CVA tenderness. Skin: Skin warm and dry. Normal skin color. No rash. Normal skin turgor. Extremities: No lower extremity edema. Neuro: Oriented X 3. LABS, X-RAYS, AND EKG Laboratory Tests: CBC + DIFF Final RHETT: 07/05/2025 10:40:00 EDT MsgRcvd: 07/05/2025 10:59 EDT Lab Test Result Reference Status Received 07/05/2025 10:59 CBC + DIFF Final EDT CBC-COMPLETE BLOOD COUNT 07/05/2025 10:59 WBC 4.6 x 10/UL 4.5 - 10.8 Final EDT 07/05/2025 10:59 RBC 4.29 x 10/UL 4.10 - 5.30 Final EDT 07/05/2025 10:59 HEMOGLOBIN 13.8 g/dl 12.0 - 16.0 Final EDT 07/05/2025 10:59 HEMATOCRIT 39.6 % 34.0 - 46.0 Final EDT 07/05/2025 10:59 MCV 92 fl 80 - 99 Final EDT 07/05/2025 10:59 MCH 32 pg 27 - 33 Final EDT 07/05/2025 10:59 MCHC 35 X10 3 32 - 36 Final EDT 3 of 11 Narrative - STEPHANIE KATZ, : 1950, , 07/05/2025 10:59 RDW/CV 14.0 % 12.0 - 15.6 Final EDT 07/05/2025 10:59 PLATELET 237 x10/UL 150 - 450 Final EDT 07/05/2025 10:59 MPV 9.5 fl 6.6 - 10.5 Final EDT AUTOMATED DIFFERENTIAL 07/05/2025 10:59 NEUT % 69.2 % 46.0 - 76.0 Final EDT 07/05/2025 10:59 LYMPH % 22.9 % 20.0 - 45.0 Final EDT 07/05/2025 10:59 MONOS % 6.5 % 0.0 - 10.0 Final EDT 07/05/2025 10:59 EO % 1.1 % 0.0 - 7.0 Final EDT 07/05/2025 10:59 BASO % 0.3 % 0.0 - 2.0 Final EDT 07/05/2025 10:59 Lymph # 1.04 x10/UL 0.80 - 2.80 Final EDT 07/05/2025 10:59 Neut # 3.16 x10/UL 1.50 - 7.10 Final EDT 07/05/2025 10:59 [place] # 0.30 x10/UL 0.20 - 1.00 Final EDT 07/05/2025 10:59 EO # 0.05 x10/UL 0.00 - 0.50 Final EDT 07/05/2025 10:59 Baso # 0.01 x10/UL 0.00 - 0.10 Final EDT 4 of 11 Narrative - STEPHANIE KATZ, : 1950, , 07/05/2025 10:59 MANUAL DIFF N/A New Order EDT 07/05/2025 10:59 MORPHOLOGY N/A New O (more content not included)... [facility] ED SUPER BILLon 07-05-2025 ED SUPER BILL Superbill - STEPHANIE KATZ, : 1950, , [address] [address] [id number] 07/05/2025 Patient: STEPHANIE KATZ Sex: Female : 1950 Age: 75y Professional Category Item Description Facility Code Code Quantity Fee Total Nurse/E/M EMERGENCY 286386 1 $0.00 $0.00 DEPT VISIT HIGH SEVERITYFUNCJ (12867-26) Grand Total $0.00 Providers Dinesh Castro M.D. Chief Complaint ABDOMINAL PAIN. Principal Diagnosis Pancreatic duct dilatation. Diverticulitis. 1 of 1 Normal [facility] ED VISIT SUMMARYon ED VISIT SUMMARY Visit Overview - STEPHANIE KATZ, : 1950, , Visit [address] [address] [id number] 07/05/2025 Patient: STEPHANIE KATZ Sex: Female : 1950 Age: 75y 07/05/2025 10:44 PM EDT ED Arrival:09:52 07/05/2025 EDT Status: Recent Travel:no Language:eng Adv Directive:Unknown Isolation Status: Ethnicity:N Fall Risk:no risk Infectious Disease Exposure:no Measurements:5'3 / 160.0 Self-Harm Status:no risk Sepsis Screen:negative cm 120.0 lb / 54.4 kg Chief Complaint:ABDOMINAL PAIN, ([place]), and (PCP started pt on Augmentin last . liquid diet x3 days, then soft. ) ALLERGIES No Known Drug Allergies HOME MEDICATIONS amLODIPine 10 mg tablet rosuvastatin 20 mg tablet PAST MEDICAL HISTORY / PROBLEMS 1 of 3 Visit Overview - STEPHANIE KATZ, : 1950, , Diverticulitis Hypercholesterolemia Hypertension See nurses notes PAST SURGICAL HISTORY Right Leg Surgery Tubal Ligation SOCIAL HISTORY Smoking status: No ED COURSE MEDICATIONS GIVEN IN EMERGENCY DEPARTMENT 13:08 07/05/25 Cipro PO 500 mg 13:08 07/05/25 Flagyl PO 500 mg IV SITE INFORMATION INTAKE OUTPUT REASSESMENT (most recent) 10:46 07/05/25. Ambulatory to room. Patient gowned. GENERAL / NEURO / PSYCH: Alert. Oriented X 4. Appears in no acute distress. HEENT: Mucous membranes are pink. RESPIRATORY: Respirations not labored. Breath sounds within normal limits. CVS: Normal sinus rhythm noted. Capillary refill less than 2 seconds. GI / : Abdomen soft and nontender. Bowel sounds within normal limits. Stool color normal. ( Patient reports LLQ abdominal pain that is nontender to palpation.). SKIN: Skin is warm and dry. VITAL SIGNS First Vitals Last Vitals Temp 09:59 07/05/25 97.8 F Temp 13:42 07/05/25 BP 09:59 07/05/25 171/71 BP 13:42 07/05/25 148/79 2 of 3 Visit Overview - STEPHANIE KATZ, : 1950, , First Vitals Last Vitals HR 09:59 07/05/25 75 HR 13:42 07/05/25 72 RR 09:59 07/05/25 18 RR 13:42 07/05/25 16 O2 Sat 09:59 07/05/25 96% O2 Sat 13:42 07/05/25 98% Pain 09:59 07/05/25 4 Pain 13:42 07/05/25 0 ETCO2 09:59 07/05/25 ETCO2 13:42 07/05/25 GCS 09:59 07/05/25 GCS 13:42 07/05/25 RTS 09:59 07/05/25 RTS 13:42 07/05/25 PROCEDURES NURSING INTERVENTIONS LABS / STUDIES LABS / STUDIES ORDERED CBC w Diff CMP CT ABD/PEL w Cont Urinalysis Urine Culture [CCL] CLINICAL IMPRESSION 3 of 3 Normal [facility] ED VITALS FLOW SHEETon 07-05 ED VITALS FLOW SHEET Vitals - STEPHANIE KATZ, : 1950, , Vital Sign Flow Sheet [place] [address] [place] [address] [id number] 07/05/2025 Patient: STEPHANIE KATZ [facility]#: [id number] Sex: Female : 1950 Age: 75y Measurements Wt: 54.4 kg, Ht/Allan: 63.0 in, BMI: 21.26 Measured Time BP MAP HR RR O2Sat ETCO2 Temp Pain GCS RTS 13:42 07/05/2025 148/79 102 72 16 98% 0 09:59 07/05/2025 171/71 104 75 18 96% 97.8 F 4 1 of 1 Normal [facility] URINALYSISon 07-05-2025 Bilirubin Ql (U) Negative Normal NORMAL: NEGATIVE [facility] Comment on above: Performed By: #### 2 [id number] #### [facility],[address] [place] [address] Clarity (U) CLEAR Normal NORMAL: CLEAR [facility] Comment on above: Performed By: #### 2 [id number] #### [facility],[address] [place], [place] [id number] Color (U) YELLOW Normal NORMAL: YELLOW [facility] Comment on above: Performed By: #### 2 [id number] #### [facility],[address] [place] [address] Glucose Ql (U) NORM Normal NORMAL: NORMAL [facility] Comment on above: Performed By: #### 2 [id number] #### [facility],[address] [place] [address] Hemoglobin Ql (U) Negative Normal NORMAL: NEGATIVE [facility] Comment on above: Performed By: #### 2 [id number] #### [facility],[address] [place] [address] Ketone Negative Normal NORMAL: NEGATIVE [facility] Comment on above: Performed By: #### 2 [id number] #### [facility],[address] [place] [address] Leukocytes Negative Normal NORMAL: NEGATIVE [facility] Comment on above: Performed By: #### 2 [id number] #### [facility],[address] [place] [address] Nitrite Ql (U) Negative Normal NORMAL: NEGATIVE [facility] Comment on above: Performed By: #### 2 71861 #### [facility],[address] [place] [address] pH (U) 7.0 [pH] Normal NORMAL: 5.0-8.0 [facility] Comment on above: Performed By: #### 2 [id number] #### [facility],[address] [place] [address] Protein Ql (U) Negative Normal NORMAL: NEGATIVE [facility] Comment on above: Performed By: #### 2 [id number] #### [facility],[address] [place] [address] Sp Posen 1.015 Normal NORMAL: 1.010-1.030 [facility] Comment on above: Performed By: #### 2 82355 #### [facility],[address] [place] [address] Specimen Type Clean catch Normal [facility] Comment on above: Performed By: #### 2 74810 #### [facility],[address] [place] [address] Urinalysis dipstick W Reflex Microscopic panel (U) NOT INDICATED Normal [facility] Comment on above: Performed By: #### 2 30099 #### [facility],[address] [place] [address] Urobilinog NORMAL Normal NORMAL: NORMAL [facility] Comment on above: Performed By: #### 2 [id number] #### [facility],[address] [place] [address] Surgical pathology reportOrd ered By: Alethea Ching on 04-11-2025 Surgical pathology study [facility] Surgery Specimen Level Reinaldo 04-07-2025 Surgery Specimen Level IV Patient Age/Sex Location Account Attending Physician STEPHANIE KATZ 74/F [place] [id number] Dr. Felicia Parada MD Specimen: [id number] Received: 04/07/25 Status: CORY Monique Num: [id number] Spec Type: BREAST BX Subm Dr: Dr. Felicia Parada MD HEADER OPERATION: Ultrasound guided breast biopsy - right PRE-OP DIAGNOSIS: Right breast TISSUE SUBMITTED: A- Right breast, 12o'clock, 6cm from nipple Ischemic Time: <1 minute Fixation Time: 6 hours MICROSCOPIC DIAGNOSIS A. Right breast, 12:00, 6 CMFN, core biopsy: * Benign breast tissue with focal microcalcification. MICROSCOPIC DESCRIPTION Slides are reviewed. GROSS DESCRIPTION A. Received in formalin in a container labeled with the patient's name, date of , and RT breast 12+6 are multiple lisa-yellow fragments of fibrofatty tissue measuring 2.0 x 0.7 x 0.2 cm in aggregate. Submitted in toto in A1. Total formalin fixation time: Between 6 and 72 hours. [facility] 04-07-2025 CPT:49498 Patient Age/Sex Location Account Attending Physician STEPHANIE KATZ 74/F [place] [id number] Dr. Felicia Parada MD Signed (signature on file) Dr. Alethea Ching MD 04/11/25 1640 Normal [facility] Comment on above: Performed By: #### P SUIV #### [facility] Laboratory [address] [place], [address] US Breast Biopsy 1st Lesiono n 04-07-2025 US Breast Biopsy 1st Lesion [facility] Imaging Services [address] [place], [place] [id number] US Breast Biopsy 1st Lesion MR#: [id number] Acct: [id number] Name: STEPHANIE KATZ Rep #: [id number] : 1950 F 74 From: Migel munoz MD PCP: Dandy Sauceda PA-C Status: REG CLI Study: US Breast Biopsy 1st Lesion Date of Exam: 03/17 02/07 Exam# [id number] Ordering Dr: Felicia Parada MD PROCEDURE: US BREAST BIOPSY 1ST LESION 04/07/2025 REASON FOR EXAM: F, Age 74 y/o , RIGHT BREAST MASS COMPARISON: Prior exam(s) dating back to March 10, 2025.. TECHNIQUE: Under direct sonographic guidance, the surgeon performed core biopsies of the 7 mm x 7 mm x 4 mm hypoechoic nodule at the 12 o'clock position of the breast at 6 cm from the nipple. FINDINGS: Successful ultrasound-guided breast biopsy as described. US/US Breast Biopsy 1st Lesion IMPRESSION: Successful ultrasound-guided breast biopsy of the hypoechoic nodule at the 12 o'clock position of the breast at 6 cm from the nipple measuring 7 mm x 7 mm x 4 mm. BI-RADS 0: INCOMPLETE - NEED ADDITIONAL IMAGING EVALUATION. Reading Location: [facility] CC: LYNNETTE Sauceda; Dr. Felicia Parada MD Head Of Data: Signed Normal [facility] Breast Limited Unilateralon 03-13-2025 Breast Limited Unilateral [facility] Imaging Services [address] [place], [place] [id number] Breast Limited Unilateral MR#: [id number] Acct: [id number] Name: STEPHANIE KATZ Rep #: [id number] : 1950 F 74 From: Shelly Coto PCP: Dandy Sauceda PA-C Status: DEP CLI Study: Breast Limited Unilateral Date of Exam: Exam# [id number] Ordering Dr: Felicia Parada MD PROCEDURE: BREAST LIMITED UNILATERAL 03/13/2025 REASON FOR EXAM: 2 RIGHT BREAST MASSES. Masses were previously seen on a prior outside ultrasound examination. They were then not seen with clarity on a 09/08/2024 ultrasound. Document whether masses are present TECHNIQUE: Targeted left breast ultrasound at the 9 o'clock and 12 o'clock positions COMPARISON: Breast ultrasound exam dated 09/08/2024 and a mammogram report dated 08/04/2024 and a breast ultrasound report dated 08/04/2024. FINDINGS: Left breast ultrasound was targeted to the 9 o'clock and 12 o'clock regions. Ultrasonography was performed and demonstrates no ultrasound abnormality right breast at the 9 o'clock position. No suspicious solid or cystic masses seen at location. There is a solid, heterogeneous, hypoechoic and isoechoic, smoothly marginated mass in the right breast at the 12 o'clock, 6 cm from the nipple measuring 7 x 6 x 3 mm. Masses slightly larger whether to the prior breast ultrasound exam dated 08/04/2024. At that time this mass measured 5 x 4 x 4 mm. This mass is wider than it is tall and does not produce any posterior shadowing. The mass has primarily benign features and appears to represent a probable fibrocystic mass. US/Breast Limited Unilateral IMPRESSION: Impression: The solid mass in the right breast at the 12 o'clock position has slightly increased in size. 1 more short-term follow-up ultrasound is recommended to document stability. The patient should return in July 2025 for routine yearly screening mammography. At that same time, a short-term follow-up ultrasound should be performed to document whether the mass in the right breast at the 12 o'clock position stabilizes and size. Birads: BI-RADS 3: PROBABLY BENIGN. Reading Location: [id number] CC: LYNNETTE Sauceda; Dr. Felicia Parada MD Head Of Data: Signed Normal [facility] CMP with eGFRon 01-03-2025 AGE 74 years Normal [facility] Comment on above: Performed By: #### 2 58104 #### [facility],[address] [place] [address] 94081 Albumin [Mass/Vol] 3.8 g/dL Normal 3.4 - 5.0 [facility] Comment on above: Performed By: #### 2 74329 #### [facility],[address] [place] [address] 30651 Albumin/Globulin [Mass ratio] 1.3 {ratio} Normal 0.9 - 1.6 [facility] Comment on above: Performed By: #### 2 20769 #### [facility],[address] [place] [address] 97164 ALK PHOS 56 U/L Normal 46 - 116 [facility] Comment on above: Performed By: #### 2 97493 #### [facility],[address] [place] [address] 66629 ALT [Catalytic activity/Vol] 26 U/L Normal 16 - 63 [facility] Comment on above: Performed By: #### 2 83912 #### [facility],[address] [place] [address] 99760 Anion gap [Moles/Vol] 11 mmol/L Normal 10 - 20 [facility] Comment on above: Performed By: #### 2 96939 #### [facility],[address] [place] [address] 15935 AST [Catalytic activity/Vol] 20 U/L Normal 13 - 39 [facility] Comment on above: Performed By: #### 2 20862 #### [facility],[address] [place] [address] 28456 B/C RATIO 16 ratio Normal 0 - 30 [facility] Comment on above: Performed By: #### 2 04944 #### [facility],[address] [place] [address] 75941 Bilirubin [Mass/Vol] 0.8 mg/dL Normal 0.2 - 1.0 [facility] Comment on above: Performed By: #### 2 52715 #### [facility],[address] [place] [address] 17415 Calcium [Mass/Vol] 9.1 mg/dL Normal 8.5 - 10.1 [facility] Comment on above: Performed By: #### 2 93766 #### [facility],[address] [place] [address] 60691 Chloride [Moles/Vol] 106 mmol/L Normal 98 - 107 [facility] Comment on above: Performed By: #### 2 45631 #### [facility],[address] [place] [address] 68776 CMP with eGFR Normal [facility] Comment on above: Result Comment: COMP REHENSIVE METABOLIC PANEL Performed By: #### 2 24040 #### [facility],[address] [place] [address] 84925 CO2 [Moles/Vol] 28.8 mmol/L Normal 21.0 - 32.0 [facility] Comment on above: Performed By: #### 2 85279 #### [facility],[address] [place] [address] 38811 Creatinine [Mass/Vol] 0.64 mg/dL Normal 0.55 - 1.02 [facility] Comment on above: Performed By: #### 2 90350 #### [facility],[address] [place] [address] 08261 GFR/1.73 sq M.predicted among non-blacks MDRD (S/P/Bld) [Vol rate/Area] mL/min/{1.73_m2} Normal 60 - 999 [facility] Comment on above: Performed By: #### 2 25878 #### [facility],[address] [place] [address] 57677 Result Comment: ACCO RDING TO THE NATIONAL KIDNEY DISEASE EDUCATION PROGRAM(NKDE), A NORMAL eGFR IS A VALUE GREATER THAN OR EQUAL TO 60 ML/MIN/1.73 SQ METERS. CHRONIC KIDNEY DISEASE: <60mL/MIN/1.73 SQ METERS KIDNEY FAILURE: <15mL/MIN/1.73 SQ METERS THIS TEST SHOULD ONLY BE USED FOR PATIENTS 18 YEARS OF AGE AND OLDER. Globulin (S) [Mass/Vol] 2.9 g/dL Normal 1.5 - 3.8 [facility] Comment on above: Performed By: #### 2 77310 #### [facility],[address] [place] [address] 73091 Glucose [Mass/Vol] 111 mg/dL High 74 - 106 [facility] Comment on above: Performed By: #### 2 31089 #### [facility],[address] [place] [address] 41370 Potassium [Moles/Vol] 4.0 mmol/L Normal 3.5 - 5.1 [facility] Comment on above: Performed By: #### 2 53375 #### [facility],[address] [place] [address] 98790 Protein [Mass/Vol] 6.7 g/dL Normal 6.4 - 8.2 [facility] Comment on above: Performed By: #### 2 40800 #### [facility],[address] [place] [address] 98127 Sodium [Moles/Vol] 142 mmol/L Normal 136 - 145 [facility] Comment on above: Performed By: #### 2 46035 #### [facility],[address] [place] [address] 90508 Urea nitrogen [Mass/Vol] 10 mg/dL Normal 7 - 18 [facility] Comment on above: Performed By: #### 2 28074 #### [facility],[address] [place] [address] 23924 LIPID PROFILEon 01-03-2025 Cholesterol [Mass/Vol] 128 mg/dL Normal 0 - 240 [facility] Comment on above: Performed By: #### 2 71179 #### [facility],[address] [place] [address] 61894 Cholesterol in HDL [Mass/Vol] 51 mg/dL Normal 40 - 60 [facility] Comment on above: Performed By: #### 2 19134 #### [facility],[address] [place] [address] 77188 Cholesterol in LDL [Mass/Vol] 60 mg/dL Normal 0 - 129 [facility] Comment on above: Performed By: #### 2 18276 #### [facility],[address] [place] [address] 45550 Cholesterol.total/Chol esterol in HDL [Mass ratio] 2.5 {ratio} Normal 0.0 - 5.0 [facility] Comment on above: Performed By: #### 2 83274 #### [facility],[address] [place] [address] 24962 Lipid 1996 panel Normal [facility] Comment on above: Result Comment: LIPI D PROFILE Performed By: #### 2 62089 #### [facility],[address] [place] [address] 94714 Triglyceride [Mass/Vol] 84 mg/dL Normal 0 - 150 [facility] Comment on above: Performed By: #### 2 09956 #### [facility],[address] [place] [address] 12902 Final Surgical Pathology Rep [facility] 01-23-2023 Final Surgical Pathology Report . Pathology Reports Accession: Collected Date/Time: Received Date/Time: Pathologist: [id number] 01/21/2023 12:00 EST 01/22/2023 11:24 ERIK BLANTON MD Final Surgical Pathology Report DIAGNOSIS: A. COLON, POLYP AT 4 CM: - HYPERPLASTIC POLYP B. RIGHT COLON BIOPSIES: - FRAGMENTS OF COLON MUCOSA WITH NO SIGNIFICANT PATHOLOGIC CHANGES C. COLON, POLYP AT 18 CM: - CONSISTENT WITH HYPERPLASTIC POLYP COMMENT: [facility] - [id number] CLINICAL INFORMATION: SCREENING Procedure: COLONOSCOPY SPECIMEN: A COLON BX 4 CM. B RIGHT COLON BX C COLON BX 18 CM GROSS DESCRIPTION: All parts labelled with patient name and [id number] A. Received in formalin labelled colon biopsy 4 cm are five fragments of pink-lisa tissue each measuring 0.1-0.4 cm. TS-1 B. Received in formalin labelled right colon biopsy are multiple fragments of pink-lisa tissue measuring in aggregate 1.9 x 0.4 x 0.3 cm. TS-1 C. Received in formalin labelled colon biopsy at 18 cm are two fragments of pink-lisa tissue each measuring 0.6 and 0.7 cm. TS-1 Grecia Ambrosio, Grossing Advertising Project Manager Dictated by Grecia Ambrosio MICROSCOPIC DESCRIPTION: The microscopic examination is performed, except in the case of Gross Only. Electronically Signed by Pathology Report verified by [facility] ERIK DIAZ Sign out Date: 01/23/2023 16:13 Performing Lab: [address] Pathology Dept [facility]) FECAL GLOBIN BY IMMUNOCHEMIS Simin 12-15-2020 FECAL GLOBIN BY IMMUNOCHEMISTRY SEE NOTE Normal [facility] Comment on above: Order Comment: FASTI NG: UNKNOWN Result Comment: FECAL GLOBIN BY IMMUNOCHEMISTRY Micro Number: [id number] Test Status: Final Specimen Source: NOT GIVEN Specimen Quality: Adequate Fecal Globin: Not Detected Performed By: #### 1 1290 #### [facility] [address], [address] [place] [id number] Pbx Operator: Tomás Pena MD FECAL GLOBIN BY IMMUNOCHEMIS Simin 11-24-2020 FECAL GLOBIN BY IMMUNOCHEMISTRY Normal [facility] Comment on above: Order Comment: FASTI NG: UNKNOWN Result Comment: FECAL GLOBIN BY IMMUNOCHEMISTRY Micro Number: [id number] Test Status: Final Specimen Source: INSURE (TM) FOBT TEST CARD Specimen Quality: Inadequate Fecal Globin: Test not performed. The specimen was received in an collection container. Performed By: #### 1 1290 #### [facility] [place] [address] [facility], [address] [place] [phone] Pbx Operator: Tomás Pena MD [facility] METABOLIC [facility] 09-21-2020 Albumin [Mass/Vol] 4.4 g/dL Normal 3.6-5.1 [facility] Comment on above: Performed By: #### 7 600, 47066 #### [facility]-[address], [address] [place] [address] Pbx Operator: Tomás Pena MD Albumin/Globulin [Mass ratio] 1.8 (calc) Normal 1.0-2.5 [facility] Comment on above: Performed By: #### 7 600, 81931 #### [facility]-[address], [address] [place] [address] Pbx Operator: Tomás Pena MD ALP [Catalytic activity/Vol] 63 U/L Normal 37-153 [facility] Comment on above: Performed By: #### 7 600, 57919 #### [facility]-[address], [address] [place] [address] Pbx Operator: Tomás Pena MD ALT [Catalytic activity/Vol] 20 U/L Normal 6-29 [facility] Comment on above: Performed By: #### 7 600, 51453 #### [facility]-[address], [address] [place] [address] Pbx Operator: Tomás Pena MD AST [Catalytic activity/Vol] 21 U/L Normal 10-35 [facility] Comment on above: Performed By: #### 7 600, 29905 #### [facility]-[address], [address] [place] [address] Pbx Operator: Tomás Pena MD Bilirubin [Mass/Vol] 1.1 mg/dL Normal 0.2-1.2 [facility] Comment on above: Performed By: #### 7 600, 69661 #### [facility]-[address], [address] [place] [address] Pbx Operator: Tomás Pena MD Calcium [Mass/Vol] 9.5 mg/dL Normal 8.6-10.4 [facility] Comment on above: Performed By: #### 7 600, 61105 #### [facility]-[address], [address] [place], [place] [address] Pbx Operator: Tomsá Pena MD Chloride [Moles/Vol] 101 mmol/L Normal 98-110 [facility] Comment on above: Performed By: #### 7 600, 34455 #### [facility]-[address], [address] [place] [address] Pbx Operator: Tomás Pena MD CO2 [Moles/Vol] 28 mmol/L Normal 20-32 [facility] Comment on above: Performed By: #### 7 600, 69850 #### [facility]-[address], [address] [place] [address] Pbx Operator: Tomás Pena MD Creatinine [Mass/Vol] 0.62 mg/dL Normal 0.50-0.[address] [facility] Comment on above: Result Comment: For patients >49 years of age, the reference limit for Creatinine is approximately 13% higher for people identified as -[place]. Performed By: #### 7 600, 25741 #### [facility]-[address], [address] [place] [address] Pbx Operator: Tomás Pena MD eGFR NON-AFR. ANGUILLAN 93 mL/min/1.73m2 Normal > OR = 60 [facility] Comment on above: Performed By: #### 7 600, 86264 #### [facility] [address] Pbx Operator: Tomás Pena MD GFR/1.73 sq M predicted among blacks MDRD (S/P/Bld) [Vol rate/Area] 107 mL/min/{1.73_m2} Normal > OR = 60 [facility] Comment on above: Performed By: #### 7 600, 78827 #### [facility]-[address], [address] [place] [address] Pbx Operator: Tomás Pena MD Globulin (S) [Mass/Vol] 2.4 g/dL (calc) Normal 1.9-3.7 [facility] Comment on above: Performed By: #### 7 600, 28426 #### [facility]-[address], [address] [place] [address] Pbx Operator: Tomás Pena MD Glucose [Mass/Vol] 111 mg/dL High 65-99 [facility] Comment on above: Result Comment: Fasting reference interval For someone without known diabetes, a glucose value between 100 and 125 mg/dL is consistent with prediabetes and should be confirmed with a follow-up test. Performed By: #### 7 600, 99417 #### [facility]-[address], [address] [place] [address] Pbx Operator: Tomás Pena MD Potassium [Moles/Vol] 4.1 mmol/L Normal 3.5-5.[address] [facility] Comment on above: Performed By: #### 7 600, 58835 #### [facility]-[address], [address] [place] [address] Pbx Operator: Tomás Pena MD Protein [Mass/Vol] 6.8 g/dL Normal 6.1-8.1 [facility] Comment on above: Performed By: #### 7 600, 94172 #### [facility]-[address], [address] [place] [address] Pbx Operator: Tomás Pena MD Sodium [Moles/Vol] 138 mmol/L Normal 135-146 [facility] Comment on above: Performed By: #### 7 600, 41504 #### [facility] [address] Pbx Operator: Tomás Pena MD Urea nitrogen [Mass/Vol] 11 mg/dL Normal 7-25 [facility] Comment on above: Performed By: #### 7 600, 23064 #### [facility]-[address], [address] [place] [address] Pbx Operator: Tomás Pena MD Urea nitrogen/Creatinine [Mass ratio] NOT APPLICABLE Normal 6-22 [facility] Comment on above: Performed By: #### 7 600, 99169 #### [facility]-[address], [address] [place] [address] Pbx Operator: Tomás Pena MD LIPID PANEL, STANDARD 11-0 Cholesterol [Mass/Vol] 210 mg/dL High <200 [facility] Comment on above: Performed By: #### 7 600, 50858 #### [facility]-[address], [address] [place] [address] Pbx Operator: Tomás Pena MD Cholesterol in HDL [Mass/Vol] 61 mg/dL Normal > OR = 50 [facility] Comment on above: Performed By: #### 7 600, 16135 #### [facility]-[address], [address] [place] [address] Pbx Operator: oTmás Pena MD Cholesterol in LDL [Mass/Vol] 125 mg/dL (calc) High [facility] Comment on above: Result Comment: Refe rence range: <100 Desirable range <100 mg/dL for primary prevention; <70 mg/dL for patients with CHD or diabetic patients with > or = 2 CHD risk factors. LDL-C is now calculated using the [place] calculation, which is a validated novel method providing better accuracy than the Friedewald equation in the estimation of LDL-C. Dk STEVEN et al. DEYA. 2013;310(19): 0939-0957 (http://education.Wish Days.Zuffle/faq/ICX463) Performed By: #### 7 600, 33174 #### [facility] [address] Pbx Operator: Tomás Pena MD Cholesterol.total/Chol esterol in HDL [Mass ratio] 3.4 (calc) Normal <5.0 [facility] Comment on above: Performed By: #### 7 600, 72995 #### [facility]-[address], [address] [place] [address] Pbx Operator: Tomás Pena MD NON HDL CHOLESTEROL 149 mg/dL (calc) High <130 [facility] Comment on above: Result Comment: For patients with diabetes plus 1 major ASCVD risk factor, treating to a non-HDL-C goal of <100 mg/dL (LDL-C of <70 mg/dL) is considered a therapeutic option. Performed By: #### 7 600, 46343 #### [facility], [address] [place] [address] Pbx Operator: Tomás Pnea MD Triglyceride [Mass/Vol] 127 mg/dL Normal <150 [facility] Comment on above: Performed By: #### 7 600, 15268 #### [facility]-[address], [address] [place], [place] [phone] Pbx Operator: Tomás Pena MD CULTURE, URINE, ROUTINEon CULTURE, URINE, ROUTINE SEE NOTE Normal [facility] Comment on above: Result Comment: CULTURE, URINE, ROUTINE Micro Number: [id number] Test Status: Final Specimen Source: URINE, CLEAN CATCH Specimen Quality: Adequate Result: Less than 10,000 CFU/mL of single Gram negative organism isolated. No further testing will be performed. If clinically indicated, recollection using a method to minimize contamination, with prompt transfer to Urine Culture Transport Tube, is recommended. Performed By: #### 3 95 #### [facility]-[address], [address] [place], [place] [phone] Pbx Operator: Tomás Pena MD Encounters Encounter Date Encounter Type Care Provider Facility Start: 09-21-2025 End: 09-21-2025 ambulatory [facility] [place]: 08-04-2025 End: 08-04-2025 ambulatory [facility] Start: 07-05-2025 End: 07-05-2025 Emergency department patient visit [facility] Start: 04-07-2025 End: 04-07-[address] [facility] PA-C Work Phone: [facility] Work Phone: Start: 04-07-2025 End: 04-07-[address] Felicia Parada MD -Breast Imaging - Biopsy/[facility] Work Phone: Start: 04-07-2025 End: 04-07-2025 ambulatory Felicia Parada Facility:[facility] Start: 03-13-2025 End: 03-13-[address] Felicia Parada MD -[facility] Work Phone: Start: 03-13-2025 End: 03-13-2025 ambulatory [facility] Facility:[facility] Start: 01-31-2025 ambulatory [facility] Start: 01-10-2025 End: 01-10-2025 ambulatory [facility] Start: 01-03-2025 End: 01-03-2025 ambulatory [facility] Start: 11-22-2024 ambulatory [facility] Procedures Date Procedure Procedure Detail Performing Clinician Start: 07-05-2025 Urinalysis DANDY ESPITIA Comment on above: Result Comment: URIN ALYSIS Performed By: #### 2 98363 #### [facility],[address] [place] [address] Start: 04-07-2025 Ultrasonography guid ed biopsy of breast [facility] PA-C Work Phone: Start: 03-13-[address] [facility] PA-C Work Phone: Plan of Treatment Date Care Activity Detail Author Start: 04-07-2025 Bx breast w/device 1 st lesion ultrasound guid BX BREAST 1ST LESION US IMAG [facility] Start: 04-07-2025 Bx breast w/device a ddl lesion ultrasound guid BX BREAST ADD LESION US IMAG [facility] Patient Education RAD RN Image-G uided Breast Biopsy Discharge Instructions [facility] Work Phone: Patient referral [facility] Work Phone: Payers Date Payer Category Payer Self-pay 2024 Private Health Insurance 101 [id number] 2016 Unknown [employer] [id number] 1950 Unknown [id number] 2.16.8 [id number] 1950 Unknown [id number] 2.16.8 [id number] 1950 Unknown [id number] 2.16.8 [id number] 1950 Unknown [id number] 2.16.8 [id number] 1950 Unknown [id number] 2.16.8 [id number] 1950 Unknown [id number] 2.16.8 [id number] Medicare [id number] Unknown [id number] 2.16.8 [id number] Unknown [id number] 2.16.8 [id number] Unknown [id number] 2.16.8 [id number] Social History Date Type Detail Facility Start: [facility] Start: 1950 Sex Assigned At Female [facility] Radiology Diagnostic study note 04-11-2025 Note Date & Type Note Facility 04-11-2025 Radiology Diagnostic study note [facility] Imaging Services [address] [place] [address] [id number] US Breast Biopsy 1st Lesion MR#: [id number] Acct: [id number] Name: STEPHANIE KATZ Rep #: [id number] : 1950 F 74 From: Jean-Pierre Jackson MD PCP: Dandy Sauceda PA-C Status: TAMIKA BENNETT Study:US Breast Biopsy 1st Lesion Date of Exa m: 04/07/25 Exam# [id number] Ordering Dr: Felicia Parada MD PROCEDURE: US BREAST BIOPSY 1ST LESION 04/07/2025 REASON FOR EXAM: F, Age 74 y/o , RIGHT BREAST MASS COMPARISON: Prior exam(s) dating back to March 10, 2025.. TECHNIQUE: Under direct sonographic guidance, the surgeon performed core biopsies of the 7 mm x 7 mm x 4 mm hypoechoic nodule at the 12 o'clock position of the breast at 6 cm from the nipple. FINDINGS: Successful ultrasound-guided breast biopsy as described. US/US Breast Biopsy 1st Lesion IMPRESSION: Successful ultrasound-guided breast biopsy of the hypoechoic nodule at the 12 o'clock position of the breast at 6 cm from the nipple measuring 7 mm x 7 mm x 4 mm. BI-RADS 0: INCOMPLETE - NEED ADDITIONAL IMAGING EVALUATION. Reading Location: [place] [address] CC: LYNNETTE Sauceda; Dr. Felicia Parada MD ~ Head Of Data: Signed [facility] Evaluation note Note Date & Type Note Facility Evaluation note No assessment information availa ble [facility] Work Phone: Reason for referral (narrative) Note Date & Type Note Facility Reason for referral (narrative) No reason for referral information available [facility] Work Phone: Summary Purpose Family History No Family History Records Found Relationship Condition Age at Onset Recorded Date/T chelo sister Malignant neoplasm of breast Unknown Advance Directives No Advanced Directives Records FoundNo Advanced Directives Records FoundNo Advanced Directives Records FoundNo Advanced Directives Records Found Chief Complaint and Reason for Visit Chief Complaint Admit Date RIGHT BREAST MASS March 13, 2025 10: 10am RIGHT BREAST MASS April 07, 2025 12:23 pm Additional Source Comments INFORMATION SOURCE (unrecogn ized section and content) DATE CREATED AUTHOR 12/15/2020 [facility] DATE CREATED AUTHOR AUTHOR'S ORGANIZ ATION 01/24/2023 [facility] ([place]) DATE CREATED AUTHOR AUTHOR'S ORGANIZ ATION 08/11/[address] [facility] DATE CREATED AUTHOR AUTHOR'S ORGANIZ ATION 09/22/2025 [facility] Care Teams (unrecognized sec tion and content) Team Status: Active Member Role Status Dates Dandy KWOK PA-C Primary Care Provider Active Team Status: Inactive Member Role Status Dates Dandy KWOK PA-C Primary Care Provider Active Start: March 13, 2025 End: March 13, 2025 Dr. Felicia Parada MD Attending Provider Active Start: March 13, 2025 End: March 13, 2025 Dr. Felicia Parada MD Referring Provider Active Start: March 13, 2025 End: March 13, 2025 Team Status: Inactive Member Role Status Dates Dandy KWOK PA-C Primary Care Provider Active Start: April 07, 2025 End: April 07, 2025 Dr. Felicia Parada MD Attending Provider Active Start: April 07, 2025 End: April 07, 2025 Dr. Felicia Parada MD Referring Provider Active Start: April 07, 2025 End: April 07, 2025 Goals (unrecognized section and content) Goals may be documented in a n alternate section FOR RECORDS PERTAINING TO PATIENTS WHO ARE OR HAVE BEEN ENROLLED IN A CHEMICAL DEPENDENCY/SUBSTANCEABUSE PROGRAM, SOME INFORMATION MAY BE OMITTED. This clinical summary was aggregated from multiple sources. Caution should be exercised in using it in the provision of clinical care. This summary normalizes information from multiple sources, and as a consequence, information in this document may materially change the coding, format and clinical context of patient data. In addition, data may be omitted in some cases. CLINICAL DECISIONS SHOULD BE BASED ON THE PRIMARY CLINICAL RECORDS. [email or web address] provides no warranty or guarantee of the accuracy or completeness of information in this document.
--- NOTE | 2025-10-18 06:52 | EKG12_ITS ---
Test Reason : Blood Pressure : */* mmHG Vent. Rate : 88 BPM Atrial Rate : 88 BPM P-R Int : 130 ms QRS Dur : 88 ms QT Int : 350 ms P-R-T Axes : 37 -1 74 degrees QTcB Int : 423 ms Sinus rhythm with occasional Premature ventricular complexes Otherwise normal ECG Reconfirmed by HEVER BAILEY, MELONY ([id number]), editor book KALLI MOLINA ([id number]) on 10/20/2025 8:59:58 AM Referred By: Confirmed By: MELONY KATHLEEN MD
--- NOTE | 2025-10-18 06:52 | CT_ITS ---
PROCEDURE: ABDOMEN/PELVIS W IV CONT ONLY 10/18/2025 REASON FOR EXAM: UPPER ABDOMINAL PAIN STATUS POST ERCP TECHNIQUE: Procedure Code: [id number] Modality: CT Procedure: ABDOMEN/PELVIS W IV CONT ONLY Coronal and Sagittal reconstruction series were provided. CONTRAST: Isovue 370 VOLUME: 100 mL One or more dose reduction techniques were used (e.g., Automated exposure control, adjustment of the mA and/or kV according to patient size, use of iterative reconstruction technique. RADIATION DOSE SUMMARY: CTDlvol: 12.1+ 5.7 mGy DLP: 290.4 mGycm COMPARISON: None available for review. FINDINGS: Lung bases: Bibasilar dependent atelectasis and subsegmental atelectasis versus scarring. Liver: Predominantly left-sided pneumobilia. Several, subcentimeter, too small to characterize bilateral hepatic hypodensities. Non dependently layering gas is noted within the gallbladder as well as dependently layering dense material, possibly sludge versus tiny stones. No significant gallbladder wall thickening. The gallbladder is hydropic. A biliary stent is in place. Main pancreatic ductal dilatation. Peripancreatic ascites that extends along the left pericolic gutter more so than on the right. The kidneys, adrenals, and spleen are normal. Bowel: Mild colonic stool burden with sigmoid colonic diverticula. Appendix: The appendix was not definitively identified. Lymph nodes: No abdominopelvic lymphadenopathy. No retroperitoneal lymphadenopathy. Vasculature: Atheromatous changes of the abdominal aorta without aneurysmal dilatation. Bones: Multilevel degenerative changes of the thoracolumbar spine [id number] anterior T11 wedging with anterior bridging osteophyte. The soft tissues are otherwise unremarkable. CT/Abdomen/Pelvis W IV Cont ONLY IMPRESSION: 1. Hydropic gallbladder with probable biliary sludge and extrahepatic biliary dilatation. Pneumobilia is noted on the left. Non dependently layering gas is also noted within the gallbladder. A biliary s tent is in place. 2. Peripancreatic fluid raises the suspicion for acute pancreatitis in the junior ropriate clinical and laboratory context. 3. T11 compression deformity of unknown chronicity. Reading Location: [id number]
[2025-10-18] MEDS: 0.9% Normal Saline (1000mL) 1,000 ML 999 ML IV (06:58)
[2025-10-18] MEDS: HYDROmorphone 0.5 MG/0.5 ML SYRINGE IV (06:59)
--- NOTE | 2025-10-18 07:04 | EX.ED.DYSGE1 ---
HPI History of Present Illness Chief Complaint: Abd Pain Informant: patient and spouse/S.O. Narrative Narrative: Patient is a 75-year-old female with past medical history of hypertension hyperlipidemia. She underwent an ERCP yesterday afternoon secondary to multiple stones within the bile duct. She states that the procedure went well and she stayed in the postanesthesia care unit for a few hours and then returned home. She states that later that night she developed discomfort in the upper abdomen/lower chest. She states it feels like it wraps around her. She reports nausea without vomiting. She denies any shortness of breath or diaphoresis. She states that the pain initially seemed more pronounced in the left upper quadrant but since its onset has now continued to spread horizontally across the upper abdomen from left to right. She denies any fevers or chills or trauma once leaving the hospital. However because of the persistent and worsening pain and concern for potential pancreatitis because of the recent procedure she presents for evaluation [facility] Medical History Wears glasses Post-menopausal TIA (transient ischemic attack) Former smoker History of Holter monitoring History of stress test Osteopenia High cholesterol Cystic lump of breast Bone fracture GERD (gastroesophageal reflux disease) Prediabetes Osteoporosis RUQ pain Abnormal mammogram HTN (hypertension) Home Medications ?Medication ?Instructions ?Recorded ?Last Taken ?Type alendronate 70 mg tablet 70 mg PO QWEEK 08/17/25 Unknown History rosuvastatin 5 mg tablet (Crestor) 5 mg PO .QOD 09/21/25 Unknown History amlodipine 5 mg tablet 5 mg PO DAILY 10/13/25 10/17/25 06:00 History Allergy/AdvReac Type Severity Reaction Status Date / Time No Known Allergies Allergy Verified 10/18/25 06:30 Family History Sister Breast cancer Mother Hypertension Surgical History (Updated 10/18/25 @ 06:29 by Arline Mondragon) History of ERCP H/O colonoscopy Fracture, tibia and fibula H/O tubal ligation Social History Smoking Status: Former smoker alcohol intake: current alcohol intake frequency: holidays/special occasions only substance use type: does not use what type of physical activity do you participate in: none ROS ROS ED Constitutional Constitutional ED: Denies chills or fever(s) Eyes Eyes: Denies change in vision ENT ENT ED: Denies sore throat Cardiovascular Cardiovascular: Reports palpitations; Denies chest pain or racing heartbeat Respiratory/Chest Respiratory/Chest: Denies cough or dyspnea Gastrointestinal Gastrointestinal: Reports abdominal pain and nausea; Denies diarrhea or vomiting Genitourinary Genitourinary ED: Denies dysuria Musculoskeletal Musculoskeletal: Reports back pain; Denies myalgias Integumentary Denies rash Neurologic Neurologic: Denies headache(s) Hematologic/Lymphatic Hematologic/Lymphatic: Denies easy bleeding or easy bruising EXAM Physical Exam Const Vital Signs: 10/18/25 06:29 Temperature 97.6 F L Temperature Source Oral Pulse Rate 93 Respiratory Rate 16 Blood Pressure 147/71 H Blood Pressure Mean 96 Pulse Ox 97 Oxygen Delivery Method Room Air Positive well nourished and well developed General Appearance ED: well developed; Negative for pallor HEENT HEENT Narrative: Normocephalic atraumatic Eyes PERRL and EOMs intact bilaterally General Eye ED: Negative for scleral icterus Neck supple Neck Narrative: No nuchal rigidity or meningeal signs No subcutaneous emphysema palpated Chest Wall palpation of chest normal Resp normal respiratory effort and clear to auscultation bilaterally Resp Narrative: No nasal flaring retractions tachypnea or accessory muscle use No signs of respiratory distress Cardio regular rate and regular rhythm Rate: other Other Details: Heart is regular rate and rhythm with frequent ectopic beat noted Radial and carotid pulses are equal and symmetric GI non-distended and no masses GI Narrative: Abdomen is soft and nondistended with normal active bowel sounds. Patient has pain with palpation mainly in the left upper quadrant with slight voluntary guarding at the site No organomegaly noted No increased tympany No peritoneal signs Auscultation: normoactive bowel sounds Palpation: soft Back/Spine no CVA tenderness Extremity normal to inspection Extremity Narrative: No asymmetric edema no pitting edema negative Homans' sign bilaterally Neuro oriented x3, CN's II-XII intact bilaterally and no sensory deficits noted Sensorium / Orientation: alert Motor Exam: strength 5/5 throughout Psych mental status grossly normal Skin no rashes or lesions noted and no wounds General Skin Exam: Negative for jaundice or pallor MDM MDM MDM Narrative Medical decision making narrative: Patient arrived to the ER with stable vitals. With her recent ERCP and now pain in the upper abdomen there is concern for post ERCP pancreatitis versus potential perforation. Patient also could have atypical presentation for UTI as she does have back pain associated with this or kidney stone. With pain in the upper abdomen/lower chest this could also be cardiac in nature. Therefore the patient had an EKG obtained which revealed no signs of ischemia with frequent PVCs. This was compared to EKG from the previous day before the ERCP and is similar in nature. A chest x-ray will be obtained to rule out lung pathology such as parental aspiration pneumonia or pneumothorax. A CT of the abdomen pelvis with IV contrast will be obtained to assess for pancreatitis or obstruction or perforation. At this time the patient's imaging and laboratory studies are still pending as well as reconsultation with gastroenterology/Dr. Still who performed the ERCP and therefore she will be signed out to the day physician Dr. Corcoran History & Record Review Discussion w/independent historian: Patient and Significant other Lab Data Attestation: I reviewed the patient's lab results. Labs: Laboratory Results - last 24 hr 10/18/25 06:48 WBC 12.9 H RBC 4.75 Hgb 14.3 Hct 43.4 MCV 91.4 MCH 30.1 MCHC 32.9 RDW Std Deviation 44.6 H RDW Coeff of Elisabet 13.2 Plt Count 301 MPV 11.5 Immature Gran % (Auto) 0.400 Neut % (Auto) 86.0 H Lymph % (Auto) 5.9 L [place] % (Auto) 7.5 Eos % (Auto) 0.0 Baso % (Auto) 0.2 Absolute Neuts (auto) 11.1 H Absolute Lymphs (auto) 0.76 L Nucleated RBC % 0 Sodium 136 Potassium 4.0 Chloride 101 Carbon Dioxide 23.2 Anion Gap 13 BUN 12 Creatinine 0.59 L Estim Creat Clear Calc 51.81 Est GFR (MDRD) Non-Af 95 BUN/Creatinine Ratio 19.9 Glucose 156 H Calcium 8.7 Total Bilirubin 1.05 Direct Bilirubin 0.41 H AST 18 ALT 12 Alkaline Phosphatase 47 Troponin T High Sens 14 Total Protein 6.6 Albumin 4.1 Globulin 2.5 Radiography Diagnostic Testing: Clinical Impression(s) from Imaging Studies Chest X-Ray 10/18/25 07:15 IMPRESSION: Probable trace left pleural effusion with left basilar atelectasis versus scarring. Reading Location: [id number] Chest x-ray as interpreted by the emergency medicine physician reveals atelectasis within the left lower lobe without acute infiltrate or pneumothorax Management Discussion w/another healthcare provider: [employer] Discharge Plan Triage Chief Complaint: Abd Pain ED Provider: Willie Elias Dx/Rx/DC Orders Prescriptions: No Action rosuvastatin [Crestor] 5 mg tablet 5 mg PO .QOD alendronate 70 mg tablet 70 mg PO QWEEK Patient Comments: SUNDAYS amlodipine 5 mg tablet 5 mg PO DAILY Primary Care Provider: Zarina Rodriguez Referrals: Zarina Rodriguez [facility] [Primary Care Provider, Medical] Print Language: Turkmen
[2025-10-18 07:08] LABS: Hematocrit 43.4 % (37-47); Hemoglobin 14.3 g/dL (12.0-15.0); Immature Granulocytes Count 0.050 X10^3/uL (0.0-0.0); Mean Corp Hgb Conc 32.9 g/dL (32-36); Mean Corpuscular Volume 91.4 fL (81-99); Mean Platelet Vol. 11.5 fl (6.2-12.0); NRBC Flagged by Analyzer 0 % (0-5); Platelet Count 301 K/mm3 (150-450); RBC Distribution Width CV 13.2 % (11.6-14.6); RBC Distribution Width SD 44.6 fl (35.1-43.9); Red Blood Count 4.75 M/mm3 (4.2-5.4); White Blood Count 12.9 K/mm3 (4.4-11.0)
--- NOTE | 2025-10-18 07:15 | RAD_ITS ---
PROCEDURE: CHEST 1 VIEW (PORTABLE) 10/18/2025 REASON FOR EXAM: CHEST PAIN TECHNIQUE: Frontal view of the chest. COMPARISON: None available. FINDINGS: Single frontal view of the chest demonstrates adequately aerated lungs bilaterally with left basilar atelectasis versus scarring with probable tiny left basilar pleural effusion. Atheromatous changes of the aorta without cardiomegaly. Mediastinal lymph node calcifications. Degenerative changes of the shoulders and spine. RAD/Chest 1 View (Portable) IMPRESSION: Probable trace left pleural effusion with left basilar atelectasis versus scarr ing. Reading Location: [id number]
[2025-10-18 07:25] LABS: AST(SGOT) 18 U/L (<=31); Alanine Aminotransfer ALT/SGPT 12 U/L (<=34); Albumin, Serum 4.1 g/dL (3.4-4.8); Alkaline Phosphatase 47 U/L (35-104); Anion Gap 13 (5-15); BUN 12 mg/dL (4-19); BUN/Creat Ratio 19.9 RATIO (10-20); Bilirubin, Direct 0.41 mg/dL (0.00-0.30); Calcium,Total 8.7 mg/dL (7.6-11.0); Carbon Dioxide 23.2 mmol/L (21.0-32.0); Chloride 101 mmol/L (98-108); Estimated Creatinine Clearance 51.81 ml/min (50-250); Globulin 2.5 g/dL (2.2-4.2); Glucose 156 mg/dL (70-99); Potassium 4.0 mmol/L (3.3-5.1); Troponin T High Sensitivity 14 ng/L (<=14)
[2025-10-18 07:51] LABS: Lipase > 3000 U/L (13-75)
[2025-10-18 07:58] LABS: Procalcitonin 0.04 ng/mL (<=0.10)
--- NOTE | 2025-10-18 08:14 | HP.PCM.HOS_ITS ---
HPI - General General Date of Admission: 10/18/25 Date of Service: 10/18/25 Chief Complaint: abdominal pain HPI Narrative STEPHANIE KATZ, is a 75 F with a PMh as outlined who was admitted with a complaint of abdominal pain which started a day before admission. She had ERCP the day before admission and went home afterwards. However she said in the evening of the day before admission she started having severe epigastric pain. The pain did not improve and so she came to the ED today. She had consistent nausea and vomiting and described the pain as a sharp cramping pain. She had had a ERCP for gallstones. Review of systems otherwise negative. Vitals in the ED with temperature of 91.6 Fahrenheit with blood pressure of 141/71 and respiratory rate of 16. Pulse rate was 93 and she was saturating at 97% on room air. CBC showed WBC of 12.9 and hemoglobin of 14.3 as well as platelets of 301. Chemistry was largely unremarkable. Direct bilirubin was 0.41 and AST and ALT as well as ALP were within normal limits. Lipase level was elevated at more than 3000. Urinalysis showed no evidence of UTI. CT of the abdomen and pelvis done showed hydropic bladder with probable biliary sludge and extrahepatic biliary dilatation as well as pneumobilia noted on the left with known dependently layering gas within the gallbladder and a biliary stent in place with peripancreatic fluid raising the suspicion for acute pancreatitis. She was admitted to be managed for acute pancreatitis likely as a complication of ERCP [facility] Medical History Wears glasses Post-menopausal TIA (transient ischemic attack) Former smoker History of Holter monitoring History of stress test Osteopenia High cholesterol Cystic lump of breast Bone fracture GERD (gastroesophageal reflux disease) Prediabetes Osteoporosis RUQ pain Abnormal mammogram HTN (hypertension) Home Medications ?Medication ?Instructions ?Recorded ?Last Taken ?Type alendronate 70 mg tablet 70 mg PO QWEEK 08/17/25 Unkn own History rosuvastatin 5 mg tablet (Crestor) 5 mg PO .QOD Unknown History amlodipine 5 mg tablet 5 mg PO DAILY 10/13/2510/17 06:00 History Allergy/AdvReac Type Severity Reaction Status Date / Time No Known Allergies Allergy Verified 10/18/25 06:30 Family History Sister Breast cancer Mother Hypertension Surgical History (Updated 10/18/25 @ 06:29 by Arline Mondragon) History of ERCP H/O colonoscopy Fracture, tibia and fibula H/O tubal ligation Social History Smoking Status: Former smoker alcohol intake: current alcohol intake frequency: holidays/special occasions only substance use type: does not use what type of physical activity do you participate in: none ROS Constitutional Constitutional: Denies anorexia, chills, fatigue, fever(s), malaise or weakness ENT HEENT: Denies dysphagia or headache(s) Cardiovascular Cardiovascular: Denies chest pain, edema, lightheadedness, orthopnea, palpitations, rapid heart rate or syncope Respiratory/Chest Respiratory/Chest: Denies cough, dyspnea, productive cough, shortness of breath at rest or shortness of breath with exertion Gastrointestinal Gastrointestinal: Reports abdominal pain; Denies constipation, diarrhea, nausea or vomiting Genitourinary Genitourinary: Denies difficulty urinating Musculoskeletal Musculoskeletal: Denies joint pain Neurologic Neurologic: Denies confusion, dizziness, focal weakness, headache(s), numbness, seizures or syncope Psychiatric Psychiatric: Denies anxiety or depression Vital Signs Vital Signs Vital Signs: 10/18/25 06:29 Temperature 97.6 F L Temperature Source Oral Pulse Rate 93 Respiratory Rate 16 Blood Pressure 147/71 H Blood Pressure Mean 96 Pulse Ox 97 Oxygen Delivery Method Room Air Weight Weight: 123 lb 14.397 oz Body Mass Index (BMI) 21.9 Physical Exam Const alert, oriented x3 and no apparent distress General Appearance: cooperative HEENT normocephalic, head/scalp atraumatic, hearing grossly normal bilaterally, moist oral mucous membranes and oropharynx normal Mouth: oral and palatal mucosa normal Eyes EOMs intact bilaterally Resp normal respiratory effort, no use of accessory muscles and clear to auscultation bilaterally Cardio regular rate, regular rhythm, S1 normal heart sound, S2 normal heart sound and no murmurs GI normal to inspection, nondistended, normoactive bowel sounds GI Narrative: moderate epigastric tenderness, no guarding or rebound tenderness Extremity normal to inspection, full ROM and no clubbing, cyanosis or edema Neuro oriented x3, moves all extremities and no focal motor deficits Sensorium / Orientation: awake and alert Motor Exam: strength 5/5 throughout Psych affect normal Results Lab / Micro Data 10/18/25 06:48 10/18/25 06:48 Labs: Laboratory Results - last 24 hr 10/18/25 06:48: WBC 12.9 H, RBC 4.75, Hgb 14.3, Hct 43.4, MCV 91.4, MCH 30.1, MCHC 32.9, RDW Std Deviation 44.6 H, RDW Coeff of Elisabet 13.2, Plt Count 301, MPV 11.5, Immature Gran % (Auto) 0.400, Neut % (Auto) 86.0 H, Lymph % (Auto) 5.9 L, [place] % (Auto) 7.5, Eos % (Auto) 0.0, Baso % (Auto) 0.2, Absolute Neuts (auto) 11.1 H, Absolute Lymphs (auto) 0.76 L, Nucleated RBC % 0, Sodium 136, Potassium 4.0, Chloride 101, Carbon Dioxide 23.2, Anion Gap 13, BUN 12, Creatinine 0.59 L, Estim Creat Clear Calc 51.81, Est GFR (MDRD) Non-Af 95, BUN/Creatinine Ratio 19.9, Glucose 156 H, Calcium 8.7, Total Bilirubin 1.05, Direct Bilirubin 0.41 H, AST 18, ALT 12, Alkaline Phosphatase 47, Troponin T High Sens 14, Total Protein 6.6, Albumin 4.1, Globulin 2.5, Lipase > 3000 H, Procalcitonin 0.04 Imaging Radiology Impression Abdomen/Pelvis CT 10/18/25 06:52 IMPRESSION: 1. Hydropic gallbladder with probable biliary sludge and extrahepatic biliary dilatation. Pneumobilia is noted on the left. Non dependently layering gas is also noted within the gallbladder. A biliary stent is in place. 2. Peripancreatic fluid raises the suspicion for acute pancreatitis in the appropriate clinical and laboratory context. 3. T11 compression deformity of unknown chronicity. Reading Location: [facility] Chest X-Ray 10/18/25 07:15 IMPRESSION: Probable trace left pleural effusion with left basilar atelectasis versus scarring. Reading Location: [facility] Assessment & Plan Assessment/Plan (1) Pancreatic duct dilated: (2) Pancreatitis: PLAN: Plan #Acute pancreatitis post ERCP * Patient says she had ERCP yesterday for gallstones. She went home and started having severe abdominal pain. * Lipase is elevated at over 3000. CT of the abdomen showed hydrops gallbladder with biliary sludge and extrahepatic biliary dilatation and pneumobilia noted on the left with nondependent layering gas also noted within the gallbladder and a biliary stent in place with peripancreatic fluid raising the suspicion for acute pancreatitis * Less likely complication of the ERCP. * ERCP done yesterday showed a stone causing an obstruction which was completely removed with biliary sphincterotomy and balloon extraction and biopsy performed in the ampulla. * Keep NPO. Hydrate aggressively with IV fluids. Placed on IV morphine and p.o. oxycodone as well as p.o. Tylenol as needed for pain. * Gastroenterology consulted. Will benefit from follow-up with general surgery on outpatient basis for evaluation for cholecystectomy. #Hypertension: On amlodipine #Hyperlipidemia: Statin DVT prophylaxis: Lovenox CODE STATUS: Full code * Patient counseled extensively about different types of CODE STATUS including full code, DNR CCA and DNR CCA. Patient elects to be full code * Total [id number] time 16 minutes. Charges/Coding Visit Charges Inpatient E&M: 93673 Init Hosp L3 Procedures Hospitalists Procedures: 60521 Advncd Care Plan 30 Min
[2025-10-18 08:16] LABS: Mucous, Urine 0 SEEN /hpf (<or=2+); Red Blood Cells-Urine 0 SEEN /hpf (0-5)
[2025-10-18 08:19] LABS: Color, Urine Yellow (Yellow); Glucose, Dipstick Normal (Normal); Ketone-Dipstick 5 mg/dl (Negative); Leukocyte Esterase-Dipstick Negative /ul (Negative); Nitrite-Dipstick Negative (Negative); Occult Blood-Urine 10 /ul (Negative); Protein-Dipstick 30 mg/dl (Negative); Specific Gravity, Urine 1.010 (1.002-1.030); Urine Bilirubin Dipstick Negative (Negative)
[2025-10-18 08:25] VITALS: BP 134/8; PULSE 85; RESP 14; TEMP 36.6; O2SAT 93
[2025-10-18 08:25] LABS: Squamous Epithelial Cells - UA 0-5 SEEN /hpf (5-10)
[2025-10-18 09:00] VITALS: BP 132/73; PULSE 86; RESP 16; TEMP 36.6; O2SAT 100
[2025-10-18 09:12] VITALS: BMI 21.8
[2025-10-18] MEDS: 0.9% Normal Saline (1000mL) 1,000 ML 150 ML IV ×2 (10:57→17:22)
[2025-10-18 15:31] VITALS: BP 124/62; PULSE 88; RESP 15; TEMP 36.6; O2SAT 96
--- NOTE | 2025-10-18 17:05 | CON.PCM.GI_ITS ---
HPI Consult Data Date of Consult: 10/18/25 HPI Narrative Reason for Consultation: Pancreatitis HPI Narrative: STEPHANIE KATZ, is a 75-year-old female with a past medical history of hypertension and hyperlipidemia. She reports undergoing an ERCP yesterday afternoon for multiple bile duct stones and was discharged home after a few hours in the PACU. Last night, she developed upper abdominal/lower chest discomfort described as wrapping around her, initially more pronounced in the left upper quadrant and subsequently spreading horizontally across the upper abdomen from left to right. She rates the pain as persistent and worsening. Associated symptoms include nausea without vomiting. She denies shortness of breath, diaphoresis, fevers, chills, or trauma since discharge. She presents for evaluation due to the persistent pain and concern for post-ERCP pancreatitis. * Labs: * Lipase: >3000 U/L (elevated) * Hematocrit: 43.4% * BUN: 12 mg/dL * Creatinine: 0.59 mg/dL * Imaging: * CT scan: Evidence of possible pancreatitis and pneumobilia (expected post- ERCP). * Interventions/Orders: * 2 liters Normal Saline administered. * IV fluids running at 300 mL/h initiated.] [facility] Medical History Wears glasses Post-menopausal TIA (transient ischemic attack) Former smoker History of Holter monitoring History of stress test Osteopenia High cholesterol Cystic lump of breast Bone fracture GERD (gastroesophageal reflux disease) Prediabetes Osteoporosis RUQ pain Abnormal mammogram HTN (hypertension) Home Medications ?Medication ?Instructions ?Recorded ?Last Taken ?Type alendronate 70 mg tablet 70 mg PO QWEEK 08/17/25 Unkn own History rosuvastatin 5 mg tablet (Crestor) 5 mg PO .QOD Unknown History amlodipine 5 mg tablet 5 mg PO DAILY 10/13/2510/17 06:00 History Allergy/AdvReac Type Severity Reaction Status Date / Time No Known Allergies Allergy Verified 10/18/25 06:30 Family History Sister Breast cancer Mother Hypertension Surgical History History of ERCP H/O colonoscopy Fracture, tibia and fibula H/O tubal ligation Social History Smoking Status: Former smoker alcohol intake: current alcohol intake frequency: holidays/special occasions only substance use type: does not use what type of physical activity do you participate in: none ROS Constitutional Constitutional: Denies fatigue, fever(s), poor appetite, weight gain or weight loss Gastrointestinal Gastrointestinal: Denies belching, bloating, change in bowel habits, change in stool character, chewing difficulty, coffee ground emesis, constipation, cramping, diarrhea, dyspepsia, dysphagia, early satiety, excessive flatus, fecal incontinence, heartburn, hematemesis, hematochezia, hemorrhoids, loose stools, melena, nausea, odynophagia, rectal bleeding, tenesmus, vomiting or weight changes Physical Exam Const alert, oriented x3, no apparent distress and healthy appearing General Appearance: cooperative GI normal to inspection, nondistended, normoactive bowel sounds, soft to palpation, non-tender and non-distended Percussion: normal to percussion Rectal Exam: deferred Lab / Micro Data 10/18/25 06:48 10/18/25 06:48 Labs: Laboratory Results - last 24 hr 10/18/25 06:48: WBC 12.9 H, RBC 4.75, Hgb 14.3, Hct 43.4, MCV 91.4, MCH 30.1, MCHC 32.9, RDW Std Deviation 44.6 H, RDW Coeff of Elisabet 13.2, Plt Count 301, MPV 11.5, Immature Gran % (Auto) 0.400, Neut % (Auto) 86.0 H, Lymph % (Auto) 5.9 L, [place] % (Auto) 7.5, Eos % (Auto) 0.0, Baso % (Auto) 0.2, Absolute Neuts (auto) 11.1 H, Absolute Lymphs (auto) 0.76 L, Nucleated RBC % 0, Sodium 136, Potassium 4.0, Chloride 101, Carbon Dioxide 23.2, Anion Gap 13, BUN 12, Creatinine 0.59 L, Estim Creat Clear Calc 51.81, Est GFR (MDRD) Non-Af 95, BUN/Creatinine Ratio 19.9, Glucose 156 H, Calcium 8.7, Total Bilirubin 1.05, Direct Bilirubin 0.41 H, AST 18, ALT 12, Alkaline Phosphatase 47, Troponin T High Sens 14, Total Protein 6.6, Albumin 4.1, Globulin 2.5, Lipase > 3000 H, Procalcitonin 0.04 10/18/25 08:12: Urine Color Yellow, Urine Clarity Clear, Urine pH 6.0, Ur Specific [place] 1.010, Urine Protein 30 H, Urine Glucose (UA) Normal, Urine Ketones 5 H, Urine Occult Blood 10 H, Urine Nitrite Negative, Urine Bilirubin Negative, Urine Urobilinogen Normal, Ur Leukocyte Esterase Negative, Urine RBC 0 SEEN, Urine WBC 0 SEEN, Ur Squamous Epith Cells 0-5 SEEN, Urine Bacteria 0 SEEN, Urine Mucus 0 SEEN Imaging Radiology Impression Abdomen/Pelvis CT 10/18/25 06:52 IMPRESSION: 1. Hydropic gallbladder with probable biliary sludge and extrahepatic biliary dilatation. Pneumobilia is noted on the left. Non dependently layering gas is also noted within the gallbladder. A biliary stent is in place. 2. Peripancreatic fluid raises the suspicion for acute pancreatitis in the appropriate clinical and laboratory context. 3. T11 compression deformity of unknown chronicity. Reading Location: [id number] Chest X-Ray 10/18/25 07:15 IMPRESSION: Probable trace left pleural effusion with left basilar atelectasis versus scarring. Reading Location: [facility] Assessment & Plan Assessment/Plan (1) Pancreatitis: (2) Enlarged gallbladder: PLAN: 75-year-old female presenting with severe, worsening epigastric pain and significantly elevated lipase following an ERCP performed approximately 24 hours prior. Clinical picture is highly consistent with acute pancreatitis, likely post-ERCP pancreatitis, which is a known complication of the procedure. The presence of pneumobilia on CT is an expected finding post-ERCP and not indicative of a complication in this context. The patient's hematocrit (43.4%) and BUN/Cr levels indicate she is not significantly dehydrated upon initial presentation, though aggressive hydration has been initiated per standard protocol for acute pancreatitis. * Diagnosis: * Acute pancreatitis, likely post-ERCP induced. * History of Hypertension and Hyperlipidemia (stable, managed). * Disposition:?Admit to the hospital for management of acute pancreatitis. * Monitoring:?Monitor vital signs, pain levels, intake and output, and serial lab values (lipase, Hgb/Hct, BUN/Cr, LFTs, Calcium) closely. * Treatment: * Continue aggressive IV fluid resuscitation as ordered (2L NS bolus given, now running at 300 mL/h) with ongoing reassessment of hydration status. * NPO (Nil per os) status to allow bowel rest. * Pain management with appropriate analgesics (e.g., intravenous opioids as needed). * Nausea control with antiemetics as needed. * Consult Gastroenterology for co-management and potential further imaging/intervention if clinical course is complicated or gallstones are the underlying non-ERCP cause. * Assess Augie's criteria/NATIVE II score for severity determination. Severity Scoring Augie's Criteria Augie's criteria for gallstone pancreatitis (the likely cause, given the bile duct stones) uses different cutoffs than for alcoholic pancreatitis. Five criteria are assessed at admission and five more at 48 hours. Based on the available admission data: * Age > 70 years: Yes (age 75)?(+1 point) * WBC > 18,000 cells/cm?: Not provided. * Blood Glucose > 220 mg/dL: Not provided. * AST > 250 IU/L: Not provided. * LDH > 400 IU/L: Not provided. Based on the limited information at presentation, the patient has at least?1 point?on the Augie's criteria. The score cannot be fully calculated until 48 hours have passed and more labs/clinical data are available (e.g., hematocrit fall >10%, BUN increase by >= mg/dL despite fluids, serum calcium <8.0 mg/dL, etc.). NATIVE II Score The NATIVE II score can be applied at admission and uses 12 physiological variables, age, and chronic health status. * Age points:?65-74 years =?+5 points * Chronic Health points:?Hypertension and hyperlipidemia typically do not count as severe organ insufficiency/immunocompromised status unless they resulted in end-organ damage (e.g., class IV heart failure, dialysis-dependent renal failure, etc.), which is not indicated. Thus, chronic health points =?+0 points. * Acute Physiology Score (APS):?Based on the most deranged values within the first 24 hours. * Hematocrit 43.4%: within normal range for scoring (30-45.9%), so?+0 points. * Creatinine 0.59 mg/dL: within normal range for scoring (0.6-1.4 mg/dL is 0 points; <0.6 is 1 point), so?+1 point?(as <0.6 is a deviation from the 0- point range). The score is not doubled as there is no mention of acute renal failure. * BUN 12: This value itself doesn't score points without knowing the specific NATIVE II chart's high/low ranges, but it is a relatively normal value. It is within the 0 point range (approx 8-20 for a 75 y/o). * Other variables (Temperature, MAP, HR, RR, Oxygenation, pH, Na, K, WBC, GCS) are not provided. Total minimum NATIVE II score is?6?(5 age points + 1 creatinine point). A score of 8 or more often indicates severe pancreatitis. Plan * Continue aggressive IV fluid resuscitation as initiated (2L NS then 300 mL/h) to prevent further organ injury and correct third-spacing. * Serial monitoring of labs, including complete blood count (CBC), complete metabolic panel (CMP) with calcium, and arterial blood gas (ABG) to fully calculate [place]'s and NATIVE II scores and monitor for organ dysfunction (e.g., hypoxemia, worsening renal function, hypocalcemia). * Strict pain control with appropriate analgesia. * Nausea management with antiemetics. * NPO (Nil Per Os) status for now, with consideration for nutritional support if severity scores worsen or recovery is prolonged. * Continue monitoring for signs of organ failure (e.g., respiratory distress, hemodynamic instability) which would necessitate ICU transfer. * Reassess severity scores and clinical status frequently over the next 48 hours. Portions of this note were generated using voice recognition software ([employer] Dictation). I have reviewed the contents and every effort has been made to ensure accuracy; however, inadvertent errors in grammar, spelling, punctuation, or word choice may occur, that were not noted before signing the document and should not alter the intended clinical meaning. Charges/Coding Visit Charges Inpatient E&M: 15023 Init Hosp L3
[2025-10-18] MEDS: Azithromycin 500 MG in 0.9% Normal Saline (250mL Bag) 250 ML 250 MG IV (20:26)
[2025-10-18 20:31] VITALS: BP 116/64; PULSE 91; RESP 18; TEMP 36.7; O2SAT 92
[2025-10-18 23:43] VITALS: BP 126/71; PULSE 96; RESP 18; TEMP 37; O2SAT 96
[2025-10-19] MEDS: 0.9% Normal Saline (1000mL) 1,000 ML 150 ML IV (01:19)
[2025-10-19 05:57] VITALS: BP 120/59; PULSE 89; RESP 18; TEMP 36.8; O2SAT 93
[2025-10-19 06:31] LABS: Hematocrit 36.3 % (37-47); Hemoglobin 11.7 g/dL (12.0-15.0); Immature Granulocytes Count 0.030 X10^3/uL (0.0-0.0); Mean Corp Hgb Conc 32.2 g/dL (32-36); Mean Corpuscular Volume 93.8 fL (81-99); Mean Platelet Vol. 11.8 fl (6.2-12.0); NRBC Flagged by Analyzer 0 % (0-5); Platelet Count 211 K/mm3 (150-450); RBC Distribution Width CV 13.6 % (11.6-14.6); RBC Distribution Width SD 46.9 fl (35.1-43.9); Red Blood Count 3.87 M/mm3 (4.2-5.4); White Blood Count 10.8 K/mm3 (4.4-11.0)
[2025-10-19 06:59] LABS: Anion Gap 9 (5-15); BUN 6 mg/dL (4-19); BUN/Creat Ratio 16.9 RATIO (10-20); Calcium,Total 7.6 mg/dL (7.6-11.0); Carbon Dioxide 22.2 mmol/L (21.0-32.0); Chloride 106 mmol/L (98-108); Estimated Creatinine Clearance 51.81 ml/min (50-250); Glucose 97 mg/dL (70-99); Potassium 3.6 mmol/L (3.3-5.1)
[2025-10-19 10:05] VITALS: BP 129/61; PULSE 85; RESP 16; TEMP 36.7; O2SAT 95
[2025-10-19] MEDS: 0.9% Normal Saline (250mL Bag) 250 ML 15 ML IV (10:11)
[2025-10-19] MEDS: 0.9% Saline Lock 10 ML Syringe IV ×4 (10:11→18:02)
[2025-10-19] MEDS: Azithromycin 500 MG in 0.9% Normal Saline (250mL Bag) 250 ML 250 MG IV (10:11)
--- NOTE | 2025-10-19 10:24 | CASEMGMT ---
Dx: Acute Pancreatitis LACE: 1 6-Clicks: 24 Medical record reviewed and patient evaluated for identification of discharge planning needs. Based on this review, at this time criteria are not present to indicate a need for discharge planning. Will remain available to assist with discharge planning needs as identified or requested.
--- NOTE | 2025-10-19 11:11 | PN_ITS ---
Subjective Subjective Patient seen and examined with her nurse by her bedside. She had no active complaints and had an uneventful night. Abdominal pain has improved markedly. Review of systems is otherwise negative. She has remained hemodynamically stable. Objective Data Objective Data Vital Signs: Vital Signs Temp Pulse Resp BP Pulse Ox O2 Del Method 98.1 F 85 16 129/61 H 95 Room Air 10/19/25 10:05 10/19/25 10:05 10/19/25 10:05 10/19/25 10:05 10/19/25 10:05 10/19/25 10:05 Oxygen Delivery Method Room Air Weight: 123 lb 3.814 oz Body Mass Index (BMI) 21.8 Intake & Output: Intake and Output for Last 24 Hours 10/17/25 10/18/25 10/19/25 23:59 23:59 23:59 Intake Total 2672.5 / 2672.5 1660 / 1660 Balance 2672.5 / 2672.5 1660 / 1660 Lab / Micro Data 10/19/25 05:44 10/19/25 05:44 Labs: Laboratory Results - last 24 hr 10/19/25 05:44: WBC 10.8, RBC 3.87 L, Hgb 11.7 L, Hct 36.3 L, MCV 93.8, MCH 30.2, MCHC 32.2, RDW Std Deviation 46.9 H, RDW Coeff of Elisabet 13.6, Plt Count 211, MPV 11.8, Immature Gran % (Auto) 0.300, Neut % (Auto) 82.1 H, Lymph % (Auto) 10.6 L, [place] % (Auto) 6.7, Eos % (Auto) 0.1, Baso % (Auto) 0.2, Absolute Neuts (auto) 8.8 H, Absolute Lymphs (auto) 1.14, Nucleated RBC % 0, Sodium 137, Potassium 3.6, Chloride 106, Carbon Dioxide 22.2, Anion Gap 9, BUN 6, Creatinine 0.36 L, Estim Creat Clear Calc 51.81, Est GFR (MDRD) Non-Af 107, BUN/Creatinine Ratio 16.9, Glucose 97, Calcium 7.6 Physical Exam Const alert, oriented x3 and no apparent distress General Appearance: cooperative HEENT normocephalic, head/scalp atraumatic, hearing grossly normal bilaterally, moist oral mucous membranes and oropharynx normal Eyes EOMs intact bilaterally Resp normal respiratory effort, normal air movement, no use of accessory muscles and clear to auscultation bilaterally Cardio regular rate, regular rhythm, S1 normal heart sound, S2 normal heart sound and no murmurs GI normal to inspection, nondistended, normoactive bowel sounds GI Narrative: epigastric tenderness has resolved. Extremity normal to inspection, full ROM, normal capillary refill and no clubbing, cyanosis or edema General Extremity: no tenderness to palpation of joints or extremities Skin General Skin Exam: no breakdown Neuro oriented x3, moves all extremities and no focal motor deficits Sensorium / Orientation: awake and alert Motor Exam: strength 5/5 throughout Psych thought process normal, cooperative and affect normal Appearance: appropriate Assessment & Plan Assessment/Plan (1) Pancreatic duct dilated: (2) Pancreatitis: PLAN: Plan #Acute pancreatitis post ERCP * Patient says she had ERCP the day before admission for gallstones. She went home and started having severe abdominal pain. * Lipase is elevated at over 3000. CT of the abdomen showed hydrops gallbladder with biliary sludge and extrahepatic biliary dilatation and pneumobilia noted on the left with nondependent layering gas also noted within the gallbladder and a biliary stent in place with peripancreatic fluid raising the suspicion for acute pancreatitis * Less likely complication of the ERCP. * ERCP done yesterday showed a stone causing an obstruction which was completely removed with biliary sphincterotomy and balloon extraction and biopsy performed in the ampulla. * Keep NPO. Hydrate aggressively with IV fluids. Placed on IV morphine and p.o. oxycodone as well as p.o. Tylenol as needed for pain. * Gastroenterology on board. Will benefit from follow-up with general surgery on outpatient basis for evaluation for cholecystectomy. * started on clear liquid diet yesterday. Advance to soft diet and then on to regular diet as tolerated. #Hypertension: On amlodipine #Hyperlipidemia: Statin DVT prophylaxis: Lovenox CODE STATUS: Full code Disposition: anticipate dc home tomorrow. Charges/Coding Visit Charges Inpatient E&M: 04595 Subs Hosp L2
--- NOTE | 2025-10-19 14:24 | CHAPLAIN ---
Type of Pastoral Visit ___ Initial Visit ___ Follow-up Visit ___ On-call Visit ___ General Patient Visit ___ Spiritual Assessment ___ Family Conference ___ Bereavement ___ Rapid Response ___ Code Blue ___ Other (describe below) Pastoral Care Referral From _x__ Patient ___ Family ___ Nurse ___ Physician ___ [place] ___ Supervisor Pipelines ___ Other (describe below) Sacrament/Intervention _x__ Active listening ___ Anointing ___ Orthodoxy ___ Bereavement ___ Communion _x__ Mary exploration ___ _x__ Life review _x__ Prayer ___ Reconciliation ___ Sacrament of Sick ___ Supportive presence ___ Wedding ___ Other (describe below) Pastoral Comments patient explains her situation and gives extra details; both are welcoming of spiritual care support; lots of family and life review given; both show interest in mary and family and seek prayers and presence
[2025-10-19] MEDS: Polyethylene Glycol 3350 17 GM PACKET PO (14:27)
[2025-10-19] MEDS: Lactated Ringers 1,000 ML 250 ML IV ×3 (14:27→22:10)
[2025-10-19] MEDS: Senna/Docusate Sodium 1 Tablet 2 TABLET PO ×2 (14:27→22:10)
[2025-10-19 16:30] VITALS: BP 110/60; PULSE 95; RESP 16; TEMP 36.6; O2SAT 97
[2025-10-19 18:47] VITALS: BP 127/58; PULSE 94; RESP 16; TEMP 36.5; O2SAT 100
[2025-10-19 22:01] VITALS: BP 138/72; PULSE 95; RESP 16; TEMP 36.4; O2SAT 98
[2025-10-20] MEDS: Lactated Ringers 1,000 ML 250 ML IV ×3 (02:16→11:12)
[2025-10-20 04:00] VITALS: BP 124/63; PULSE 99; RESP 16; TEMP 36.7; O2SAT 100
[2025-10-20 07:08] LABS: Hematocrit 32.4 % (37-47); Hemoglobin 10.9 g/dL (12.0-15.0); Immature Granulocytes Count 0.050 X10^3/uL (0.0-0.0); Mean Corp Hgb Conc 33.6 g/dL (32-36); Mean Corpuscular Volume 92.0 fL (81-99); Mean Platelet Vol. 11.3 fl (6.2-12.0); NRBC Flagged by Analyzer 0 % (0-5); POSITIVE DIFFERENTIAL YES; Platelet Count 154 K/mm3 (150-450); RBC Distribution Width CV 13.2 % (11.6-14.6); RBC Distribution Width SD 44.3 fl (35.1-43.9); Red Blood Count 3.52 M/mm3 (4.2-5.4); White Blood Count 9.5 K/mm3 (4.4-11.0)
[2025-10-20 07:50] LABS: Anion Gap 10 (5-15); BUN 3 mg/dL (4-19); BUN/Creat Ratio 9.5 RATIO (10-20); Calcium,Total 8.3 mg/dL (7.6-11.0); Carbon Dioxide 25.4 mmol/L (21.0-32.0); Chloride 100 mmol/L (98-108); Estimated Creatinine Clearance 51.81 ml/min (50-250); Glucose 110 mg/dL (70-99); Potassium 3.2 mmol/L (3.3-5.1)
[2025-10-20 08:22] VITALS: BP 127/60; PULSE 90; RESP 16; TEMP 36.8; O2SAT 95
[2025-10-20] MEDS: Senna/Docusate Sodium 1 Tablet 2 TABLET PO ×2 (09:07→20:26)
[2025-10-20] MEDS: Polyethylene Glycol 3350 17 GM PACKET PO (09:08)
[2025-10-20] MEDS: Azithromycin 500 MG in 0.9% Normal Saline (250mL Bag) 250 ML 250 MG IV (09:14)
[2025-10-20 11:06] LABS: Amylase 384 U/L (28-100); CRP 177.00 mg/L (0.0-3.0); Lipase 174 U/L (13-75)
[2025-10-20 11:49] VITALS: BP 120/64; PULSE 84; RESP 16; TEMP 36.7; O2SAT 92
--- NOTE | 2025-10-20 13:45 | PN_ITS ---
Subjective Subjective Patient seen and examined. She had no active complaints today. She remained on a full liquid diet this morning as she had some vomiting yesterday when she tried to advance her diet. She did not have any abdominal pain today. Review of systems otherwise negative. Objective Data Objective Data Vital Signs: Vital Signs Temp Pulse Resp BP Pulse Ox O2 Del Method 98.1 F 84 16 120/64 92 Room Air 10/20/25 11:49 10/20/25 11:49 10/20/25 11:49 10/20/25 11:49 10/20/25 11:49 10/20/25 13:17 Oxygen Delivery Method Room Air Weight: 123 lb 3.814 oz Body Mass Index (BMI) 21.8 Intake & Output: Intake and Output for Last 24 Hours 10/18/25 10/19/25 10/20/25 23:59 23:59 23:59 Intake Total 2672.5 / 2672.5 4659.17 / 4659.17 4004.17 / 4004.17 Balance 2672.5 / 2672.5 4659.17 / 4659.17 4004.17 / 4004.17 Lab / Micro Data 10/20/25 06:52 10/20/25 06:52 Labs: Laboratory Results - last 24 hr 10/20/25 06:52: WBC 9.5, RBC 3.52 L, Hgb 10.9 L, Hct 32.4 L, MCV 92.0, MCH 31.0, MCHC 33.6, RDW Std Deviation 44.3 H, RDW Coeff of Elisabet 13.2, Plt Count 154, MPV 11.3, Immature Gran % (Auto) 0.500, Neut % (Auto) 85.1 H, Lymph % (Auto) 5.4 L, [place] % (Auto) 8.7, Eos % (Auto) 0.1, Baso % (Auto) 0.2, Absolute Neuts (auto) 8.1 H, Absolute Lymphs (auto) 0.51 L, Nucleated RBC % 0, ESR 29, Sodium 135, P otassium 3.2 L, Chloride 100, Carbon Dioxide 25.4, Anion Gap 10, BUN 3 L, C reatinine 0.36 L, Estim Creat Clear Calc 51.81, Est GFR (MDRD) Non-Af 107, B UN/Creatinine Ratio 9.5 L, Glucose 110 H, Calcium 8.3, C-React Prot Ext Range 177.00 H, Amylase 384 H, Lipase 174 H Physical Exam Const alert, oriented x3 and no apparent distress General Appearance: cooperative HEENT normocephalic, head/scalp atraumatic, hearing grossly normal bilaterally, moist oral mucous membranes and oropharynx normal Eyes EOMs intact bilaterally Resp normal respiratory effort, normal air movement, no use of accessory muscles and clear to auscultation bilaterally Cardio regular rate, regular rhythm, S1 normal heart sound, S2 normal heart sound and no murmurs GI normal to inspection, nondistended, normoactive bowel sounds GI Narrative: epigastric tenderness has resolved. Extremity normal to inspection, full ROM, normal capillary refill and no clubbing, cyanosis or edema General Extremity: no tenderness to palpation of joints or extremities Skin General Skin Exam: no breakdown Neuro oriented x3, moves all extremities and no focal motor deficits Sensorium / Orientation: awake and alert Motor Exam: strength 5/5 throughout Psych thought process normal, cooperative and affect normal Appearance: appropriate Assessment & Plan Assessment/Plan (1) Pancreatic duct dilated: (2) Pancreatitis: PLAN: Plan #Acute pancreatitis post ERCP * Patient had ERCP the day before admission for gallstones. She went home and started having severe abdominal pain. * Lipase is elevated at over 3000. CT of the abdomen showed hydrops gallbladder with biliary sludge and extrahepatic biliary dilatation and pneumobilia noted on the left with nondependent layering gas also noted within the gallbladder and a biliary stent in place with peripancreatic fluid raising the suspicion for acute pancreatitis * Less likely complication of the ERCP. * ERCP done showed a stone causing an obstruction which was completely removed with biliary sphincterotomy and balloon extraction and biopsy performed in the ampulla. * Hydrated aggressively with IV fluids. Placed on IV morphine and p.o. oxycodone as well as p.o. Tylenol as needed for pain. * Gastroenterology on board. Will benefit from follow-up with general surgery on outpatient basis for evaluation for cholecystectomy. * On full liquid diet. Will advance as tolerated today. Lipase is down to 174. #Hypokalemia: Potassium is 3.3. Replace and trend. #Hypertension: On amlodipine #Hyperlipidemia: Statin DVT prophylaxis: Lovenox CODE STATUS: Full code Disposition: anticipate dc home tomorrow. Charges/Coding Visit Charges Inpatient E&M: 09759 Subs Hosp L2
[2025-10-20] MEDS: Potassium Chloride Oral Tablet 20 MEQ 40 MEQ PO (14:09)
[2025-10-20 14:53] VITALS: BP 133/58; PULSE 94; RESP 16; TEMP 36.4; O2SAT 93
--- NOTE | 2025-10-20 17:43 | PN_ITS ---
Progress Note The patient is a 75-year-old woman admitted with pancreatitis. Her pain is currently reported as controlled. She reports no bowel movement since admission. * Labs: * C-reactive protein (CRP) remains elevated. * Hematocrit (Hct) has shown a good decrease (improved from admission levels). * Blood Urea Nitrogen (BUN) has shown a good decrease (improved from admission levels). * White Blood Cell (WBC) count has decreased (improving trend). * Imaging/Procedures:?None reported in this update. * Augie's Criteria Indicators:?Hct and BUN show positive trends indicating potential improvement or non-severe course. * Current Treatments: * IV Lactated Ringer's (LR) restarted due to elevated CRP. * Medications for motility: Azithromycin (for small bowel), IV Betty Physical Exam Const alert, oriented x3, no apparent distress and healthy appearing General Appearance: cooperative GI normal to inspection, nondistended, normoactive bowel sounds, soft to palpation, non-tender and non-distended Percussion: normal to percussion Rectal Exam: deferred Assessment & Plan Assessment/Plan (1) Enlarged gallbladder: (2) Pancreatitis: (3) Pancreatic duct dilated: PLAN: * Labs: * C-reactive protein (CRP) elevated. * Hematocrit (Hct) has shown a good decrease (improved from admission levels). * Blood Urea Nitrogen (BUN) has shown a good decrease (improved from admission levels). * White Blood Cell (WBC) count has decreased (improving trend). * Imaging/Procedures:?None reported in this update. * Fraser's Criteria Indicators:?Hct and BUN show positive trends indicating potential improvement or non-severe course. * Current Treatments: * IV Lactated Ringer's (LR) restarted due to elevated CRP. * Medications for motility: Azithromycin (for small bowel), IV Reglan (for st omach), and stool softeners initiated. ?Assessment The patient is a 75-year-old woman managing acute pancreatitis. Overall clinical status appears to be improving based on vital signs (afebrile) and lab trends (decreasing Hct, BUN, WBC). Pain is controlled. However, persistent elevated CRP and ongoing lack of bowel movement (ileus/constipation) are noted concerns. The positive lab trends suggest fluid resuscitation is effective in mitigating systemic severity indicators (Augie's criteria components). The lack of bowel movement despite multiple pro-motility agents is the primary current complication to address. Plan * Fluid Management:?Continue IV Lactated Ringer's as ordered, monitoring CRP levels and fluid balance closely. * Bowel Management: * Continue current regimen of stool softeners, azithromycin, and IV Reglan. * Consider adding a stimulant laxative or osmotic laxative if no bowel movement occurs within the next 12-24 hours. * Maintain increasing her diet as tolerated as per pancreatitis protocol. * Monitor abdominal girth and listen for bowel sounds frequently throughout shifts. * Mag citrate 300 mL x 1 * Monitoring: * Continue monitoring vital signs, I/O (intake and output), and daily lab work (CBC, BMP, CRP). * Reassess pain control regularly. * Continue monitoring for signs of infection or systemic inflammatory response. Portions of this note were generated using voice recognition software ([employer] Dictation). I have reviewed the contents and every effort has been made to ensure accuracy; however, inadvertent errors in grammar, spelling, punctuation, or word choice may occur, that were not noted before signing the document and sh ould not alter the intended clinical meaning. Visit Charges Inpatient E&M: 55212 Subs Hosp L3
--- NOTE | 2025-10-20 17:43 | PCM.PN.BLA ---
Progress Note The patient is a 75-year-old woman admitted with pancreatitis. Her pain is currently reported as controlled. She reports no bowel movement since admission. Labs: C-reactive protein (CRP) remains elevated. Hematocrit (Hct) has shown a good decrease (improved from admission levels). Blood Urea Nitrogen (BUN) has shown a good decrease (improved from admission levels). White Blood Cell (WBC) count has decreased (improving trend). Imaging/Procedures:?None reported in this update. Augie's Criteria Indicators:?Hct and BUN show positive trends indicating potential improvement or non-severe course. Current Treatments: IV Lactated Ringer's (LR) restarted due to elevated CRP. Medications for motility: Azithromycin (for small bowel), IV Betty Physical Exam Const alert, oriented x3, no apparent distress and healthy appearing General Appearance: cooperative GI normal to inspection, nondistended, normoactive bowel sounds, soft to palpation, non-tender and non-distended Percussion: normal to percussion Rectal Exam: deferred Assessment & Plan Assessment/Plan (1) Enlarged gallbladder: (2) Pancreatitis: (3) Pancreatic duct dilated: PLAN: Labs: C-reactive protein (CRP) elevated. Hematocrit (Hct) has shown a good decrease (improved from admission levels). Blood Urea Nitrogen (BUN) has shown a good decrease (improved from admission levels). White Blood Cell (WBC) count has decreased (improving trend). Imaging/Procedures:?None reported in this update. Augie's Criteria Indicators:?Hct and BUN show positive trends indicating potential improvement or non-severe course. Current Treatments: IV Lactated Ringer's (LR) restarted due to elevated CRP. Medications for motility: Azithromycin (for small bowel), IV Reglan (for stomach), and stool softeners initiated. ?Assessment The patient is a 75-year-old woman managing acute pancreatitis. Overall clinical status appears to be improving based on vital signs (afebrile) and lab trends (decreasing Hct, BUN, WBC). Pain is controlled. However, persistent elevated CRP and ongoing lack of bowel movement (ileus/constipation) are noted concerns. The positive lab trends suggest fluid resuscitation is effective in mitigating systemic severity indicators (Augie's criteria components). The lack of bowel movement despite multiple pro-motility agents is the primary current complication to address. Plan Fluid Management:?Continue IV Lactated Ringer's as ordered, monitoring CRP levels and fluid balance closely. Bowel Management: Continue current regimen of stool softeners, azithromycin, and IV Reglan. Consider adding a stimulant laxative or osmotic laxative if no bowel movement occurs within the next 12-24 hours. Maintain increasing her diet as tolerated as per pancreatitis protocol. Monitor abdominal girth and listen for bowel sounds frequently throughout shifts. Mag citrate 300 mL x 1 Monitoring: Continue monitoring vital signs, I/O (intake and output), and daily lab work (CBC, BMP, CRP). Reassess pain control regularly. Continue monitoring for signs of infection or systemic inflammatory response. Portions of this note were generated using voice recognition software (Track[employer] Dictation). I have reviewed the contents and every effort has been made to ensure accuracy; however, inadvertent errors in grammar, spelling, punctuation, or word choice may occur, that were not noted before signing the document and should not alter the intended clinical meaning. Visit Charges Inpatient E&M: 40498 Subs Hosp L3
[2025-10-20] MEDS: Magnesium Citrate 300 ML PO (17:57)
[2025-10-20 20:40] VITALS: BP 154/89; PULSE 98; RESP 16; TEMP 36.8; O2SAT 95
[2025-10-20] MEDS: 0.9% Saline Lock 10 ML Syringe IV (23:57)
[2025-10-21 02:40] VITALS: BP 139/88; PULSE 89; RESP 16; TEMP 36.6; O2SAT 94
[2025-10-21 04:57] LABS: Hematocrit 36.8 % (37-47); Hemoglobin 12.3 g/dL (12.0-15.0); Immature Granulocytes Count 0.020 X10^3/uL (0.0-0.0); Mean Corp Hgb Conc 33.4 g/dL (32-36); Mean Corpuscular Volume 92.0 fL (81-99); Mean Platelet Vol. 10.9 fl (6.2-12.0); NRBC Flagged by Analyzer 0 % (0-5); Platelet Count 195 K/mm3 (150-450); RBC Distribution Width CV 12.9 % (11.6-14.6); RBC Distribution Width SD 43.9 fl (35.1-43.9); Red Blood Count 4.00 M/mm3 (4.2-5.4); White Blood Count 8.4 K/mm3 (4.4-11.0)
[2025-10-21 05:30] LABS: Anion Gap 9 (5-15); BUN 5 mg/dL (4-19); BUN/Creat Ratio 14.6 RATIO (10-20); Calcium,Total 8.5 mg/dL (7.6-11.0); Carbon Dioxide 26.6 mmol/L (21.0-32.0); Chloride 101 mmol/L (98-108); Estimated Creatinine Clearance 51.81 ml/min (50-250); Glucose 104 mg/dL (70-99); Potassium 3.4 mmol/L (3.3-5.1)
[2025-10-21] MEDS: 0.9% Saline Lock 10 ML Syringe IV (05:57)
[2025-10-21 08:11] VITALS: BP 142/83; PULSE 75; RESP 16; TEMP 36.4; O2SAT 97
[2025-10-21] MEDS: Azithromycin 500 MG in 0.9% Normal Saline (250mL Bag) 250 ML 250 MG IV (09:03)
--- NOTE | 2025-10-21 10:39 | DCINST_ITS ---
Discharge Instructions DC O2, CPAP, BIPAP needs Home O2 Discharge instructions: No Dressing / Incision Discharge Activity: Return to Normal Activity Weight Bearing Status: Weight bearing as tolerated Dressing / Incision Call your doctor if you observe: Fever of 101 or Higher, Shortness of breath, Dizziness, Swelling in the ankles, Chest pain and - (abdominal pain) Follow Up Care Test Results: Test results from this visit will be discussed in further detail at your follow- up appointment, if applicable. Discharge Plan Admission Admit Date/Time: 10/18/25 08:16 Primary Reason for Your Visit: acute pancreatitis Attending Provider: Dahlia Crandall Primary Care Provider: Zarina Rodriguez Consulting Providers: Stef John; Pepe Still; Anabella Yadav; Adrienne Charles; Kendra Castaneda Instructions Patient Instructions: Pancreatitis Acute Dc Discharge Orders/Prescriptions Prescriptions: Continued rosuvastatin [Crestor] 5 mg tablet 5 mg PO .QOD alendronate 70 mg tablet 70 mg PO QWEEK Patient Comments: SUNDAYS amlodipine 5 mg tablet 5 mg PO DAILY Referrals / Follow Up: Melvin Elder MD [Med Staff - Active Staff, General Surgery] - Within 1 Week Referral Note: see to establish care for enlarged gallbladder Pepe Still DO [Med Staff - Active Staff, Gastroenterology] - Within 2 Weeks Zarina Rodriguez PA-C [Primary Care Provider, Medical] - Within 1 Week Disposition Disposition (needs filled in before D/C Order can be placed): Home, Self Care
--- NOTE | 2025-10-21 10:41 | PCM.DC.SUM ---
Providers Date of Admission: 10/18/25 Date of Discharge: 10/21/25 Primary Care Physician: Zarina Rodriguez PA-C Consultations 10/18/25 09:51 Consult: Gastroenterology Routine Consulting Provider: Perlita Gastroenterfilomena Reason for Consult: acute pancreatitis post ERCP EMERGENT Consult: No MD Notified: Yes Date Notified: 10/18/25 Time Notified: 09:51 Method of Notification: Text Reason For Visit: ACUTE PANCREATITIS Diagnosis Discharge Diagnosis (1) Enlarged gallbladder: Status: Acute Code(s): K82.8 - Other specified diseases of gallbladder (2) Pancreatitis: Status: Acute Code(s): K85.90 - Acute pancreatitis without necrosis or infection, unspecified (3) Pancreatic duct dilated: Status: Acute Code(s): K86.89 - Other specified diseases of pancreas Plan #Acute pancreatitis post ERCP Patient had ERCP the day before admission for gallstones. She went home and started having severe abdominal pain. Lipase is elevated at over 3000. CT of the abdomen showed hydrops gallbladder with biliary sludge and extrahepatic biliary dilatation and pneumobilia noted on the left with nondependent layering gas also noted within the gallbladder and a biliary stent in place with peripancreatic fluid raising the suspicion for acute pancreatitis Less likely complication of the ERCP. ERCP done showed a stone causing an obstruction which was completely removed with biliary sphincterotomy and balloon extraction and biopsy performed in the ampulla. Hydrated aggressively with IV fluids. Placed on IV morphine and p.o. oxycodone as well as p.o. Tylenol as needed for pain. Gastroenterology on board. Will benefit from follow-up with general surgery on outpatient basis for evaluation for cholecystectomy. On full liquid diet. Will advance as tolerated today. Lipase is down to 174. #Hypokalemia: Potassium is 3.3. Replace and trend. #Hypertension: On amlodipine #Hyperlipidemia: Statin DVT prophylaxis: Lovenox CODE STATUS: Full code Disposition: anticipate dc home tomorrow. Medications at Discharge Home Medications alendronate 70 mg tablet 70 mg PO QWEEK 08/17/25 rosuvastatin 5 mg tablet (Crestor) 5 mg PO .QOD 09/21/25 amlodipine 5 mg tablet 5 mg PO DAILY 10/13/25 Hospital Course Operations None Procedures None Summary of Care Provided Minutes Spent on Discharge: 37 Hospital Course: STEPHANIE KATZ, is a 75 F with a PMh as outlined who was admitted with a complaint of abdominal pain which started a day before admission. She had ERCP the day before admission and went home afterwards. However she said in the evening of the day before admission she started having severe epigastric pain. The pain did not improve and so she came to the ED today. She had consistent nausea and vomiting and described the pain as a sharp cramping pain. She had had a ERCP for gallstones. Review of systems otherwise negative. Vitals in the ED with temperature of 91.6 Fahrenheit with blood pressure of 141/71 and respiratory rate of 16. Pulse rate was 93 and she was saturating at 97% on room air. CBC showed WBC of 12.9 and hemoglobin of 14.3 as well as platelets of 301. Chemistry was largely unremarkable. Direct bilirubin was 0.41 and AST and ALT as well as ALP were within normal limits. Lipase level was elevated at more than 3000. Urinalysis showed no evidence of UTI. CT of the abdomen and pelvis done showed hydropic bladder with probable biliary sludge and extrahepatic biliary dilatation as well as pneumobilia noted on the left with known dependently layering gas within the gallbladder and a biliary stent in place with peripancreatic fluid raising the suspicion for acute pancreatitis. She was admitted to be managed for acute pancreatitis likely as a complication of ERCP. She was hydrated aggressively with IV fluids and placed on IV pain medication. Gastroenterology was also consulted. She was placed on Reglan and azithromycin. Gastroenterology. Her abdominal pain gradually improved and she was placed on a diet which she tolerated well. Her diet was advanced and she tolerated this also and was on a regular diet at time of discharge. She was discharged home on 10/21/2025 and is to follow-up with her primary care doctor within 1 to 2 weeks. She is also to follow-up with gastroenterology. Patient seen and examined prior to discharge. She had no active complaints and had an uneventful night. Review of systems otherwise negative. Labs and vitals reviewed. Home medication reviewed and reconciled. Physical Exam Const alert, oriented x3 and no apparent distress General Appearance: cooperative, comfortable and well kempt HEENT normocephalic, head/scalp atraumatic, hearing grossly normal bilaterally, moist oral mucous membranes and oropharynx normal Mouth: oral and palatal mucosa normal Eyes EOMs intact bilaterally Resp normal respiratory effort, normal air movement, no use of accessory muscles and clear to auscultation bilaterally Cardio regular rate, regular rhythm, S1 normal heart sound, S2 normal heart sound and no murmurs GI normal to inspection, nondistended, normoactive bowel sounds, soft to palpation, non-tender and non-distended Extremity normal to inspection, full ROM, normal capillary refill and no clubbing, cyanosis or edema General Extremity: no tenderness to palpation of joints or extremities Skin no rashes or lesions noted General Skin Exam: no breakdown Neuro oriented x3, moves all extremities and no focal motor deficits Sensorium / Orientation: awake and alert Motor Exam: strength 5/5 throughout Psych thought process normal, cooperative and affect normal Appearance: appropriate Weight / BMI Weight Weight: 123 lb 3.814 oz Body Mass Index (BMI) 21.8 ABG / Lab / Microbiology Data 10/21/25 04:44 10/21/25 04:44 Laboratory: Laboratory Results - last 24 hr 10/21/25 04:44: WBC 8.4, RBC 4.00 L, Hgb 12.3, Hct 36.8 L, MCV 92.0, MCH 30.8, MCHC 33.4, RDW Std Deviation 43.9, RDW Coeff of Elisabet 12.9, Plt Count 195, MPV 10.9, Immature Gran % (Auto) 0.200, Neut % (Auto) 79.2 H, Lymph % (Auto) 11.7 L, [place] % (Auto) 8.1, Eos % (Auto) 0.4, Baso % (Auto) 0.4, Absolute Neuts (auto) 6.7, Absolute Lymphs (auto) 0.99, Nucleated RBC % 0, Sodium 137, Potassium 3.4, Chloride 101, Carbon Dioxide 26.6, Anion Gap 9, BUN 5, Creatinine 0.37 L, Estim Creat Clear Calc 51.81, Est GFR (MDRD) Non-Af 107, BUN/Creatinine Ratio 14.6, Glucose 104 H, Calcium 8.5 D/C Instructions Discharge Activity: Return to Normal Activity Weight Bearing Status: Weight bearing as tolerated Call your doctor if you observe: Fever of 101 or Higher, Shortness of breath, Dizziness, Swelling in the ankles, Chest pain and - (abdominal pain) DC O2, CPAP, BIPAP Needs Home O2 Discharge instructions: No DC home with Oxygen: No Meaningful Use Info Meaningful Use Meaningful Use Diagnoses (Choose all that apply): None applicable Discharge Plan Admission Admit Date/Time: 10/18/25 08:16 Primary Reason for Your Visit: acute pancreatitis Attending Provider: Dahlia Crandall Primary Care Provider: Zarina Rodriguez Consulting Providers: Stef John; Pepe Still; Anabella Yadav; Adrienne Charles; Kendra Castaneda Instructions Patient Instructions: Pancreatitis Acute Dc Discharge Orders/Prescriptions Prescriptions: Continued rosuvastatin [Crestor] 5 mg tablet 5 mg PO .QOD alendronate 70 mg tablet 70 mg PO QWEEK Patient Comments: SUNDAYS amlodipine 5 mg tablet 5 mg PO DAILY Referrals / Follow Up: Melvin Elder MD [Med Staff - Active Staff, General Surgery] - Within 1 Week Referral Note: see to establish care for enlarged gallbladder Pepe Still DO [Med Staff - Active Staff, Gastroenterology] - Within 2 Weeks Zarina Rodriguez PA-C [Primary Care Provider, Medical] - Within 1 Week Disposition Disposition (needs filled in before D/C Order can be placed): Home, Self Care Charges/Coding Visit Charges Inpatient E&M: 87512 Disch Hosp >30min
== END 2025-10-21 11:43 | disposition home or self-care (01) | DRG 444 ==
LOC: ED 08:17 → PCU 08:37 → MS3 10-19 18:45
PROVIDERS: Internal Medicine Gastroenterology; Admitting Provider Student in an Organized Health Care Education/Training Program; Emergency Provider Emergency Medicine; PCP Family Medicine; Visit Provider Student in an Organized Health Care Education/Training Program
DX: K80.51 Calculus of bile duct without cholangitis or cholecystitis with obstruction (principal); K85.10 Biliary acute pancreatitis without necrosis or infection; K91.89 Other postprocedural complications and disorders of digestive system; I10 Essential (primary) hypertension; E78.5 Hyperlipidemia, unspecified; E87.6 Hypokalemia; K82.8 Other specified diseases of gallbladder; K31.89 Other diseases of stomach and duodenum; M81.0 Age-related osteoporosis without current pathological fracture; I49.3 Ventricular premature depolarization; K86.89 Other specified diseases of pancreas; Z87.19 Personal history of other diseases of the digestive system; Z86.73 Personal history of transient ischemic attack (TIA), and cerebral infarction without residual deficits; Z79.899 Other long term (current) drug therapy; Z87.891 Personal history of nicotine dependence
CPT/HCPCS: 36415; 71045; 74177; 74330; 76000; 80048; 80076; 81001; 82150; 83690; 84145; 84484; 85025; 85652; 86140; 88305; 93005; 97161; 97165; 97802; 99285; C2625; Q9967; A4216; J2405

== ENCOUNTER 2025-11-01 09:22 | Emergency (ER) | payer MEDICARE, SELFPAY ==
[2025-11-01 09:23] VITALS: BP 150/95; PULSE 79; RESP 18; TEMP 37; O2SAT 99
[2025-11-01 09:32] VITALS: BMI 20.5
--- NOTE | 2025-11-01 10:24 | CT_ITS ---
PROCEDURE: ABDOMEN/PELVIS W IV CONT ONLY 11/01/2025 REASON FOR EXAM: ABDOMINAL PAIN, RECENT PANCREATITIS Nausea. TECHNIQUE: Procedure Code: [id number] Modality: CT Procedure: ABDOMEN/PELVIS W IV CONT ONLY Coronal and Sagittal reconstruction series were provided. CONTRAST: Isovue 370 VOLUME: 68 mL One or more dose reduction techniques were used (e.g., Automated exposure control, adjustment of the mA and/or kV according to patient size, use of iterative reconstruction technique. RADIATION DOSE SUMMARY: CTDlvol: 11.5 mGy DLP: 471.64 mGycm COMPARISON: October 18, 2025. FINDINGS: Lung bases: Minimal residual increased linear markings at the lung bases suggestive of linear atelectasis and/or scarring. Coronary artery calcification. Liver: Pneumobilia within the liver most likely secondary to the recent ERCP and biliary stent placement. Gallbladder: Air-fluid level seen within the gallbladder lumen. Findings suggestive of tiny layering gallstones. Spleen: Normal size. Pancreas: Since prior study, the peripancreatic inflammatory changes have improved. The pancreatic duct measures upper limits of normal. No evidence of pseudocyst. Adrenals: Unremarkable Kidneys: Normal renal sizes. No hydronephrosis. Bladder: Unremarkable Reproductive Organs: Heterogeneously enlarged uterus with focal areas of calcification suggestive of enlarged fibroid uterus. Bowel: Unremarkable gas pattern. Appendix: Unremarkable Lymph nodes: Unremarkable. Vasculature: Mild diffuse atherosclerotic calcifications are noted. Peritoneum / Retroperitoneum: No evidence of ascites. Bones: Degenerative changes of the spine. CT/Abdomen/Pelvis W IV Cont ONLY IMPRESSION: Stent seen in the common bile duct. Pneumobilia with air-fluid level in the gallbladder lumen. The pancreatic duct measures upper limits of normal. Since prior study, there has been improvement in the peripancreatic inflammatio n. Minimal residual changes persist. Reading Location: [facility]
--- NOTE | 2025-11-01 10:28 | EX.ED.GENINJ ---
HPI History of Present Illness Chief Complaint: Nausea/Vomiting Narrative Narrative: Chief complaint and HPI: 75-year-old female with recent diagnosis of acute pancreatitis status post ERCP presents for evaluation of abdominal pain. History taken by patient as well as medical record. Patient was discharged from our hospital on 10/21/2025. I reviewed the discharge summary. She had a ERCP the day prior to admission for gallstones. Began having abdominal pain in which she was diagnosed with acute pancreatitis. ERCP done showed a stone causing obstruction which was completely removed with biliary sphincterotomy and balloon extraction and biopsy performed in the ampulla. Patient states she is scheduled to have a possible cholecystectomy outpatient. Patient states she was doing well until Thursday when she started to develop recurrent abdominal pain with nausea. Decreased appetite secondary to above. States it feels similar to her previous pancreatitis but not as severe. She denies any fever, chills, URI symptoms, chest pain, shortness of breath, diarrhea, constipation, dysuria. Review of systems: See HPI Medications: As listed on the chart Allergies: As listed on the chart PFSH: Per chart Vital signs: As listed on the chart. Reviewed. Physical exam: Gen: A&O x3, NAD Head: Normocephalic, atraumatic Eyes: No sclera icterus, conjunctiva clear ENT: Moist mucous membranes Neck: Trachea midline CV: RRR, no murmurs, no peripheral edema Resp: Lungs CTA BL, no w/r/c GI: Abd soft, non-distended, mildly tender to palpation in the epigastrium and right upper quadrant, no Asencio sign, no r/r/g : No CVA tenderness Musc: Full ROM, no deformity Skin: Warm, dry Psych: Cooperative, appropriate mood and affect [facility] Medical History Wears glasses Post-menopausal TIA (transient ischemic attack) Former smoker History of Holter monitoring History of stress test Osteopenia High cholesterol Cystic lump of breast Bone fracture GERD (gastroesophageal reflux disease) Prediabetes Osteoporosis RUQ pain Abnormal mammogram HTN (hypertension) Home Medications ?Medication ?Instructions ?Recorded ?Last Taken ?Type alendronate 70 mg tablet 70 mg PO QWEEK 08/17/25 Unknown History rosuvastatin 5 mg tablet (Crestor) 5 mg PO .QOD 09/21/25 Unknown History amlodipine 5 mg tablet 5 mg PO DAILY 10/13/25 10/17/25 06:00 History Allergy/AdvReac Type Severity Reaction Status Date / Time No Known Allergies Allergy Verified 11/01/25 09:25 Family History Sister Breast cancer Mother Hypertension Surgical History History of ERCP H/O colonoscopy Fracture, tibia and fibula H/O tubal ligation Social History (Updated 11/01/25 @ 09:35 by Sharmin Marquez) housing: house Smoking Status: Former smoker alcohol intake: current alcohol intake frequency: holidays/special occasions only substance use type: does not use what type of physical activity do you participate in: none EXAM Physical Exam Const Vital Signs: 11/01/25 09:23 11/01/25 11:23 11/01/25 13:00 Temperature 98.6 F Temperature Source Oral Pulse Rate 79 69 76 Respiratory Rate 18 Blood Pressure 150/95 H 146/84 H 123/73 H Blood Pressure Mean 113 104 89 Pulse Ox 99 97 97 Oxygen Delivery Method Room Air Room Air MDM MDM MDM Narrative Medical decision making narrative: 75-year-old female with recent diagnosis of acute pancreatitis status post ERCP presents for evaluation of abdominal pain. History taken by patient as well as medical record. Patient was discharged from our hospital on 10/21/2025. I reviewed the discharge summary. She had a ERCP the day prior to admission for gallstones. Began having abdominal pain in which she was diagnosed with acute pancreatitis. ERCP done showed a stone causing obstruction which was completely removed with biliary sphincterotomy and balloon extraction and biopsy performed in the ampulla. Patient states she is scheduled to have a possible cholecystectomy outpatient. Patient states she was doing well until Thursday when she started to develop recurrent abdominal pain with nausea. Decreased appetite secondary to above. Differential diagnosis includes but is not limited to recurrent pancreatitis, cholelithiasis, choledocholithiasis, cholecystitis, electrolyte abnormality, PUD. NS bolus, morphine, Zofran ordered. Laboratory workup ordered including CT abdomen and pelvis. CBC unremarkable. BMP unremarkable. Hepatic panel unremarkable. Lipase unremarkable. CT abdomen pelvis shows stent seen in the common bile duct. Pneumobilia with air-fluid level in the gallbladder lumen. The pancreatic duct measures upper limits of normal. There has been improvement in the True pancreatic inflammation. Minimal residual changes present. Otherwise no acute abnormality. At this point in time, no clear etiology to explain patient's pain. Given she was just admitted for ERCP pancreatitis I did consult Dr. Still. Recommendation is to discharge the patient home on Carafate 3 times daily x 2-week as well as narcotic pain medicine. She has appointment in their office on Thursday. Patient was updated of all the results and confirmed understand the plan. Strict return precautions were explained. Patient stable to discharge home. Impression: 1. Epigastric/right upper quadrant abdominal pain 2. Recent history of pancreatitis status post ERCP Lab Data Labs: Laboratory Results - last 24 hr 11/01/25 11/01/25 10:05 10:50 WBC 7.8 RBC 4.35 Hgb 13.0 Hct 39.7 MCV 91.3 MCH 29.9 MCHC 32.7 RDW Std Deviation 44.0 H RDW Coeff of Elisabet 13.2 Plt Count 362 MPV 11.0 Immature Gran % (Auto) 0.400 Neut % (Auto) 79.5 H Lymph % (Auto) 13.1 L [place] % (Auto) 6.3 Eos % (Auto) 0.1 Baso % (Auto) 0.6 Absolute Neuts (auto) 6.2 Absolute Lymphs (auto) 1.02 Nucleated RBC % 0 Sodium 140 Potassium 3.9 Chloride 103 Carbon Dioxide 26.1 Anion Gap 11 BUN 16 Creatinine 0.51 L Estim Creat Clear Calc 51.81 Est GFR (MDRD) Non-Af 98 BUN/Creatinine Ratio 31.7 H Glucose 104 H Lactic Acid < 1.0 Calcium 9.4 Total Bilirubin 0.76 Direct Bilirubin 0.30 AST 16 ALT 17 Alkaline Phosphatase 44 Total Protein 6.7 Albumin 4.2 Globulin 2.5 Lipase 46 Radiography Diagnostic Testing: Clinical Impression(s) from Imaging Studies Abdomen/Pelvis CT 11/01/25 10:24 IMPRESSION: Stent seen in the common bile duct. Pneumobilia with air-fluid level in the gallbladder lumen. The pancreatic duct measures upper limits of normal. Since prior study, there has been improvement in the peripancreatic inflammation. Minimal residual changes persist. Reading Location: [facility] Discharge Plan Triage Chief Complaint: Nausea/Vomiting ED Provider: Chong Olmedo Dx/Rx/DC Orders Prescriptions: No Action rosuvastatin [Crestor] 5 mg tablet 5 mg PO .QOD alendronate 70 mg tablet 70 mg PO QWEEK Patient Comments: SUNDAYS amlodipine 5 mg tablet 5 mg PO DAILY Primary Care Provider: Zarina Rodriguez Referrals: Zarina Rodriguez, PA-C [Primary Care Provider, Medical] Print Language: [place]
[2025-11-01] MEDS: 0.9% Normal Saline (1000mL) 1,000 ML 999 ML IV (10:31)
[2025-11-01 10:32] LABS: Hematocrit 39.7 % (37-47); Hemoglobin 13.0 g/dL (12.0-15.0); Immature Granulocytes Count 0.030 X10^3/uL (0.0-0.0); Mean Corp Hgb Conc 32.7 g/dL (32-36); Mean Corpuscular Volume 91.3 fL (81-99); Mean Platelet Vol. 11.0 fl (6.2-12.0); NRBC Flagged by Analyzer 0 % (0-5); Platelet Count 362 K/mm3 (150-450); RBC Distribution Width CV 13.2 % (11.6-14.6); RBC Distribution Width SD 44.0 fl (35.1-43.9); Red Blood Count 4.35 M/mm3 (4.2-5.4); White Blood Count 7.8 K/mm3 (4.4-11.0)
[2025-11-01 11:13] LABS: AST(SGOT) 16 U/L (<=31); Alanine Aminotransfer ALT/SGPT 17 U/L (<=34); Albumin, Serum 4.2 g/dL (3.4-4.8); Alkaline Phosphatase 44 U/L (35-104); Anion Gap 11 (5-15); BUN 16 mg/dL (4-19); BUN/Creat Ratio 31.7 RATIO (10-20); Bilirubin, Direct 0.30 mg/dL (0.00-0.30); Calcium,Total 9.4 mg/dL (7.6-11.0); Carbon Dioxide 26.1 mmol/L (21.0-32.0); Chloride 103 mmol/L (98-108); Estimated Creatinine Clearance 51.81 ml/min (50-250); Globulin 2.5 g/dL (2.2-4.2); Glucose 104 mg/dL (70-99); Lipase 46 U/L (13-75); Potassium 3.9 mmol/L (3.3-5.1)
[2025-11-01 11:23] VITALS: BP 146/84; PULSE 69; O2SAT 97
[2025-11-01 13:00] VITALS: BP 123/73; PULSE 76; O2SAT 97
[2025-11-01 14:17] VITALS: BP 123/73; PULSE 76; RESP 18; TEMP 37; O2SAT 97
== END 2025-11-01 14:19 | disposition home or self-care (01) ==
PROVIDERS: Emergency Provider Surgery; PCP Family Medicine; Visit Provider Surgery
DX: R10.13 Epigastric pain (principal); E78.00 Pure hypercholesterolemia, unspecified; Z87.891 Personal history of nicotine dependence; I10 Essential (primary) hypertension; K21.9 Gastro-esophageal reflux disease without esophagitis; Z86.73 Personal history of transient ischemic attack (TIA), and cerebral infarction without residual deficits; Z98.51 Tubal ligation status; R10.11 Right upper quadrant pain; Z87.19 Personal history of other diseases of the digestive system
CPT/HCPCS: 74177; 80048; 80076; 83605; 83690; 85025; 96361; 96374; 96375; 99282; Q9967; A4216; J2405